=== PATIENT | female | born 1955 | race Caucasian/White ===

== ENCOUNTER 2020-03-22 12:32 | Emergency (ER) | payer MEDICARE, MEDICAID, SELFPAY ==
[2020-03-22 12:57] VITALS: BP 111/44; PULSE 54; RESP 14; TEMP 36.4; O2SAT 99; BMI 51.0
--- NOTE | 2020-03-22 13:22 | ECG_ITS ---
Measurements Intervals [place] Rate: 51 P: 60 LA: 250 QRS: 30 QRSD: 98 T: 54 QT: 436 QTc: 402 SINUS BRADYCARDIA WITH FIRST DEGREE AV BLOCK MINIMAL ST DEPRESSION [0.025+ mV ST DEPRESSION] Compared to ECG 07/18/2016 12:22:19 ST (T wave) deviation now present Sinus rhythm no longer present Myocardial infarct finding no longer present Electronically Signed On 03-22-2020 20:56:15 CDT by Nataly Marina M.D. [id number]
--- NOTE | 2020-03-22 13:22 | XR_ITS ---
WS: [id number] Portable AP upright chest, 03/22/2020 Clinical Data: chest pain Comparison: PA and lateral chest, 06/07/2018. Findings: No nodules, masses or effusions are seen. The heart is enlarged. The pulmonary vascularity is not increased. No pneumonia or pneumothorax is seen. The aortic arch shows calcification. XR/XR chest 1V portable [id number] Impression: Atherosclerosis.
[2020-03-22 15:01] LABS: Basophils % 0.4 %; Eosinophils # 0.2 10^3/uL (0.0-0.8); Eosinophils % 3.1 %; Hematocrit 43.1 % (37.0-47.0); Hemoglobin 13.9 g/dL (11.5-15.3); Lymphocytes # 1.5 10^3/uL (0.8-4.8); Lymphocytes % 22.8 %; Mean Corpuscular HGB Conc 32.3 g/dL (30.0-36.0); Mean Corpuscular Volume 92.9 fL (81-99); Mean Platelet Volume 11.3 fL (7.4-10.4); Monocytes # 0.7 10^3/uL (0.2-0.9); Monocytes % 10.3 %; Neutrophils # 4.2 10^3/uL (1.8-7.7); Neutrophils % 63.1 %; Nucleated Red Blood Cells % 0 %; Platelet Count 220 10^3/cmm (130-400); Red Blood Count 4.64 10^6/uL (4.1-5.3); White Blood Count 6.7 10^3/uL (4.0-10.0)
[2020-03-22 15:15] LABS: Alanine Aminotransferase 8 U/L (0-33); Albumin Level 4.3 g/dL (3.5-5.2); Alkaline Phosphatase 113 IU/L (35-105); Anion Gap 21.1 (5-19); Aspartate Amino Transferase 16 U/L (0-32); Blood Urea Nitrogen 58 mg/dL (8-23); Carbon Dioxide 24 mmol/L (22-29); Chloride 94 mmol/L (98-107); Globulin 3.8 g/dL (1.3-4.6); Glomerular Filtration Rate 28.2 mL/min (90-130); Glucose 93 mg/dL (65-115); Osmolality Calculated 276 mOsm/kg (285-295); Potassium 5.1 mmol/L (3.5-5.1); Sodium 134 mmol/L (136-145); Total Bilirubin 0.7 mg/dL (0.15-1.2); Total Protein 8.1 g/dL (6.6-8.7)
[2020-03-22 15:17] LABS: Troponin(5th) Baseline 12 ng/L (0-10)
[2020-03-22 17:00] VITALS: BP 135/50; PULSE 58; RESP 24; O2SAT 96
[2020-03-22 17:50] VITALS: BP 141/50; PULSE 60; RESP 22; O2SAT 98
[2020-03-22 18:04] LABS: NT Pro B Type Natriuretic Pept 178 pg/mL (0-125)
--- NOTE | 2020-03-22 18:39 | ED_ITS ---
HPI - General Adult General: Chief complaint: General Medical Stated complaint: low hr Time Seen by Provider: 03/22/20 15:45 Source: patient Mode of arrival: ambulatory Limitations: no limitations History of Present Illness: HPI narrative: The patient presents from her primary care provider's office with concerns of bradycardia. While in her doctor's office they noticed her heart rate was low and so was sent here to be seen. She has complained of mild shortness of breath with dyspnea on exertion as well as generalized weakness. She has a history of congestive heart failure. No fever, no cough, no sick contacts. MD complaint: Low HR Associated symptoms: Reports malaise; Deny dyspnea, headache(s), nausea, rash, palpitations or vomiting Review of Systems General: Reports: 10 or more systems reviewed and unremarkable except in HPI and below Const: Reports: malaise; Denies: fever(s), chills or body aches Eyes: Denies: change in vision or blurry vision ENMT: Denies: throat pain, enlarged tonsils, odynophagia, hoarseness, mouth pain or swelling of lips/tongue Card: Denies: palpitations, irregular heart rhythm, edema or swelling of feet/ankles Resp: Denies: dyspnea, productive cough or non-productive cough GI: Denies: abdominal pain, nausea or vomiting : Denies: flank pain, difficulty voiding, dysuria, urinary frequency, urinary urgency or urinary hesitancy Musc: Denies: neck pain, back pain or extremity swelling Skin/Breast: Denies: rash, pruritus or erythema Neuro: Denies: headache(s), numbness in extremities or weakness in extremities Endo: Denies: polyuria, polydipsia or tired all the time PFSH ED PFSH: Social History Smoking and tobacco status: never smoked Physical Exam Const: COMMON NORMALS: no acute distress, average body habitus, patient oriented x3, no limitations, healthy appearing, alert and well nourished HENMT: COMMON NORMALS: normocephalic, atraumatic and moist oral mucous membranes HEAD & SCALP: normocephalic and atraumatic Eye: COMMON NORMALS: Equal, round and reactive pupils present, EOMs intact bilaterally, conjunctivae normal and no scleral icterus CONJUNCTIVA: Yes con junctivae normal PUPIL: Yes Equal, round and reactive pupils present Neck/C-Spine: COMMON NORMALS: full ROM, supple, no meningeal signs, no JVD and No carotid bruits Chest: COMMONS NORMALS: normal inspection of the chest and normal palpation of entire chest wall Resp: COMMON NORMALS: normal respiratory effort, No retractions, No use of accessory muscles, clear to auscultation bilaterally and percussion normal AUSCULTATION: clear to auscultation bilaterally PERCUSSION: percussion normal Cardio: COMMON NORMALS: no JVD, regular rhythm, S1 normal heart sound present, S2 normal heart sound present, No gallops present (Cardio), No clicks present (Cardio), No murmurs present (Cardio), No rub (Cardio) and Peripheral pulses 2+ throughout RATE: bradycardic RHYTHM: regular rhythm HEART SOUNDS: S1 n ormal heart sound present and S2 normal heart sound present PERIPHERAL PULSES: Peripheral pulses 2+ throughout GI: COMMON NORMALS: Normal to inspection, nondistended, normoactive bowel sounds present, Soft to palpation, non-tender, No hepatosplenomegaly present, no masses and no bruits PALPATION: Yes Soft to palpation and Yes No hepatosplenomegaly present : COMMON NORMALS: Yes no CVA tenderness BLADDER/KIDNEY EXAM: Yes no CVA tenderness Back/Pelvis: COMMON NORMALS: no CVA tenderness Extremity: COMMON NORMALS: normal to inspection, full ROM, capillary refill normal, no calf tenderness and no pedal edema Neuro: COMMON NORMALS: patient oriented x3 SENSORIUM/ORIENTATION: Yes alert MENINGEAL SIGNS: Yes no meningeal signs Skin: COMMON NORMALS: no rashes or lesions noted, no wounds, turgor normal, no jaundice, no petechiae and no mottling GENERAL SKIN EXAM: no rashes or lesions noted and turgor normal Course Reevaluation(s): Reevaluation #1: Discussed her lab and imaging findings with her. Labs unremarkable. Troponins not significantly elevated and she has a flat 2-hour delta. The patient takes metoprolol 25 mg twice daily and I advised that she cut the dose in half and observe for change. She will check her blood pressure and pulse every morning to see if it is going too low or too high. She will follow-up with her primary care provider. She voiced understanding and is in agreement with the plan. Time: 18:39 Vital Signs: Vital signs: Vital Signs Temperature 97.6 F 03/22/20 12:57 Pulse Rate 66 03/22/20 18:50 Respiratory Rate 20 H 03/22/20 18:50 Blood Pressure 135/60 03/22/20 18:50 Pulse Oximetry 93 03/22/20 18:50 MDM - General Adult MDM Narrative: Medical decision making narrative: 64-year-old female patient who was sent to the emergency department by her primary care provider with concerns of bradycardia. Evaluation in the ED was unremarkable for acute illness. She is on metoprolol 25 mg twice daily and she is advised to cut the dose to 12.5 mg twice daily and monitor her heart rate daily. She is to follow-up with her primary care provider and to return for any concerns. Medical Records: Attestation: I reviewed the patient's medical records. Lab Data: Attestation: I reviewed the patient's lab results. Labs: Lab Results 03/22/20 03/22/20 03/22/20 Range/Units 14:53 14:53 14:53 WBC 6.7 (4.0-10.0) 10^3/ uL RBC 4.64 (4.1-5.3) 10^6/u L Hgb 13.9 (11.5-15.3) g/dL Hct 43.1 (37.0-47.0) % MCV 92.9 (81-99) fL MCH 30.0 (28.0-34.0) pg MCHC 32.3 (30.0-36.0) g/dL RDW 12.0 L (12.1-15.1) % Plt Count 220 (130-400) 10^3/c mm MPV 11.3 H (7.4-10.4) fL Neut % (Auto) 63.1 % Lymph % (Auto) 22.8 % [place] % (Auto) 10.3 % Eos % (Auto) 3.1 % Baso % (Auto) 0.4 % Neut # (Auto) 4.2 (1.8-7.7) 10^3/u L Lymph # (Auto) 1.5 (0.8-4.8) 10^3/u L [place] # (Auto) 0.7 (0.2-0.9) 10^3/u L Eos # (Auto) 0.2 (0.0-0.8) 10^3/u L Baso # (Auto) 0.0 (0.0-0.1) 10^3/u L Nucleated RBC % (a uto) 0 % Nucleated RBCs # 0.0 /100WBC Sodium 134 L (136-145) mmol/L Potassium 5.1 (3.5-5.1) mmol/L Chloride 94 L (98-107) mmol/L Carbon Dioxide 24 (22-29) mmol/L Anion Gap 21.1 H (5-19) BUN 58 H (8-23) mg/dL Creatinine 1.8 H (0.5-0.9) mg/dL GFR Calculation 28.2 L (90-130) mL/min Glucose 93 (65-115) mg/dL Calculated Osmolal ity 276 L (285-295) mOsm/k g Calcium 10.0 (8.5-10.5) mg/dL Total Bilirubin 0.7 (0.15-1.2) mg/dL AST 16 (0-32) U/L ALT 8 (0-33) U/L Alkaline Phosphata se 113 H (35-105) IU/L Troponin T Baselin e 12 H (0-10) ng/L Troponin T 120 Min makah (0-10) ng/L Delta Troponin T (0-10) ABS# NT-Pro-B Natriuret Pep (0-125) pg/mL Total Protein 8.1 (6.6-8.7) g/dL Albumin 4.3 (3.5-5.2) g/dL Globulin 3.8 (1.3-4.6) g/dL 03/22/20 03/22/20 Range/Units 17:08 17:08 WBC (4.0-10.0) 10^3/ uL RBC (4.1-5.3) 10^6/u L Hgb (11.5-15.3) g/dL Hct (37.0-47.0) % MCV (81-99) fL MCH (28.0-34.0) pg MCHC (30.0-36.0) g/dL RDW (12.1-15.1) % Plt Count (130-400) 10^3/c mm MPV (7.4-10.4) fL Neut % (Auto) % Lymph % (Auto) % [place] % (Auto) % Eos % (Auto) % Baso % (Auto) % Neut # (Auto) (1.8-7.7) 10^3/u L Lymph # (Auto) (0.8-4.8) 10^3/u L [place] # (Auto) (0.2-0.9) 10^3/u L Eos # (Auto) (0.0-0.8) 10^3/u L Baso # (Auto) (0.0-0.1) 10^3/u L Nucleated RBC % (a uto) % Nucleated RBCs # /100WBC Sodium (136-145) mmol/L Potassium (3.5-5.1) mmol/L Chloride (98-107) mmol/L Carbon Dioxide (22-29) mmol/L Anion Gap (5-19) BUN (8-23) mg/dL Creatinine (0.5-0.9) mg/dL GFR Calculation (90-130) mL/min Glucose (65-115) mg/dL Calculated Osmolal ity (285-295) mOsm/k g Calcium (8.5-10.5) mg/dL Total Bilirubin (0.15-1.2) mg/dL AST (0-32) U/L ALT (0-33) U/L Alkaline Phosphata se (35-105) IU/L Troponin T Baselin e (0-10) ng/L Troponin T 120 Min makah 11.40 H (0-10) ng/L Delta Troponin T -0.60 L (0-10) ABS# NT-Pro-B Natriuret Pep 178 H (0-125) pg/mL Total Protein (6.6-8.7) g/dL Albumin (3.5-5.2) g/dL Globulin (1.3-4.6) g/dL Imaging Data^: CXR: Radiologist's impression: [address] [address] XRay Report Signed Patient: Shelby Thompson #: [id number] : 5Acct#:[id number] Age/Sex: 64 / FADM Date: 03/22/20 Loc: ERRoom/Bed: Attending Dr: Ordering Provider/Ordering MD: Henrietta Oropeza Date of Service: 03/22/20 Procedure(s): XR chest 1V portable [id number] Accession Number(s): [id number] Report Number: [id number] WS: [id number] Portable AP upright chest, 03/22/2020 Clinical Data: chest pain Comparison: PA and lateral chest, 06/07/2018. Findings: No nodules, masses or effusions are seen. The heart is enlarged. The pulmonary vascularity is not increased. No pneumonia or pneumothorax is seen. The aortic arch shows calcification. XR/XR chest 1V portable [id number] Impression: Atherosclerosis. Dictated By:Sarah Biswas MD Signed By:Sarah Biswasigned Date/Time:03/22/20 1340 DD/ 1339 EKG Data^: EKG 1: Attestation: I personally reviewed and interpreted this EKG as follows: EKG interpretation date: 03/22/20 EKG interpretation time: 16:13 Prior EKG tracings: not available for review Interpretation: Sinus bradycardia with first-degree heart block. Heart rate 53 beats per minutes. No ST changes. Computer generated interpretation: Chest X-Ray 03/22/20 13:22 Impression: Atherosclerosis. Discharge Plan Discharge Patient Disposition: Home, Self-Care Clinical Impression: Drug-induced bradycardia Condition: Stable Prescriptions: Continued furosemide 40 mg tablet See Rx Instructions .ROUTE .COMPLEX RF: 0 potassium chloride 10 mEq capsule, extended release 10 meq PO BID RF: 0 sertraline 100 mg tablet 50 mg PO DAILY RF: 0 Vitamin B-12 1,000 mcg Tablet See Rx Instructions .ROUTE .COMPLEX RF: 0 amlodipine 5 mg tablet 7.5 mg PO QPM RF: 0 Aspir-81 81 mg Tablet,Delayed Release (Dr/Ec) 81 mg PO DAILY RF: 0 spironolactone 25 mg tablet See Rx Instructions .ROUTE .COMPLEX RF: 0 levothyroxine 50 mcg tablet 50 mcg PO DAILY RF: 0 hydroxychloroquine 200 mg tablet 200 mg PO BID RF: 0 ProAir HFA 90 mcg/actuation HFA aerosol inhaler 2 puff INHALATION Q4H PRN (Reason: Shortness Of Breath) RF: 0 losartan 100 mg tablet 100 mg PO DAILY RF: 0 Flonase Allergy Relief 50 mcg/actuation [place],Suspension 2 spray INTRANASAL BID PRN (Reason: unknown) RF: 0 Symbicort 160-4.5 mcg/actuation HFA aerosol inhaler 2 puff INHALATION BID RF: 0 Changed metoprolol tartrate 25 mg tablet 12.5 mg PO BID Qty: 0 RF: 0 Discharge Orders: Discharge Order (Routine); Ordered 03/22/20 Ordered By: Abhi Hairston Referrals: Salas Echevarria MD [Primary Care Provider] - 1-3 days Patient Instructions: Bradycardia (ED) Activity Restrictions/Additional Instructions: Return for any new or worsening symptoms. Check your blood pressure and heart rate every day to make sure your blood pressure does not go below 90 and your heart rate does not go below 50. If any of these happens contact your healthcare provider or return to the emergency department for evaluation. 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
[2020-03-22 18:50] VITALS: BP 135/60; PULSE 66; RESP 20; O2SAT 93
--- NOTE | 2020-03-22 19:22 | ECG_ITS ---
Measurements Intervals [place] Rate: 53 P: 137 SC: 237 QRS: 4 QRSD: 101 T: 119 QT: 454 QTc: 427 ECTOPIC ATRIAL BRADYCARDIA WITH FIRST DEGREE AV BLOCK LOW QRS VOLTAGE [QRS DEFLECTION < 0.5/1.0 mV IN LIMB/CHEST LEADS] SEPTAL MYOCARDIAL INFARCTION , OF INDETERMINATE AGE [40+ ms Q WAVE IN V1/V2] Compared to ECG 07/18/2016 12:22:19 Bradycardia, nonsinus now present Low QRS voltage now present Sinus rhythm no longer present Myocardial infarct finding still present Electronically Signed On 03-22-2020 21:01:34 CDT by Nataly Marina M.D. [id number]
== END 2020-03-22 19:00 | disposition home or self-care (01) ==
PROVIDERS: Physician Assistant; Emergency Provider Family Medicine; PCP Internal Medicine
DX: R00.1 Bradycardia, unspecified (principal); Z79.82 Long term (current) use of aspirin; I70.0 Atherosclerosis of aorta
CPT/HCPCS: 12345; 71045; 80053; 83880; 84484; 85025; 93005; 99282; 99283

== ENCOUNTER 2021-04-28 12:11 | Inpatient (IN) | payer MEDICARE, MEDICAID, SELFPAY ==
[2021-04-28] VITALS (8 sets, daily range): BP systolic 110–135; BP diastolic 48–72; PULSE 72–84; RESP 15–27; TEMP 36.9; O2SAT 84–93; BMI 48.7
--- NOTE | 2021-04-28 14:10 | XRR_ITS ---
PROCEDURE INFORMATION: Exam: XR Chest Exam date and time: 04/28/2021 2:10 PM Age: 65 years old Clinical indication: Dyspnea TECHNIQUE: Imaging protocol: XR of the chest. Views: 1 view. COMPARISON: CR XR chest 1V portable [id number] 03/22/2020 1:42 PM FINDINGS: Lungs: Patchy airspace disease bilaterally. Diffuse interstitial thickening. Pleural spaces: Unremarkable. No pleural effusion. No pneumothorax. Heart/Mediastinum: Mild cardiac enlargement. Vasculature: Scattered atherosclerosis. Bones/joints: Unremarkable. XR/XR chest 1V portable [id number] IMPRESSION: Diffuse interstitial and alveolar opacities. The diagnostic considerations would include both atypical pneumonia or pulmonary edema with cardiac decompensation.
--- NOTE | 2021-04-28 14:13 | ECG_ITS ---
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 Measurements Intervals [place] Rate: 71 P: 22 WV: 192 QRS: 20 QRSD: 93 T: 42 QT: 412 QTc: 448 Interpretive Statements SINUS RHYTHM LOW QRS VOLTAGE IN PRECORDIAL LEADS [QRS DEFLECTION < 1.0 mV IN CHEST LEADS] POSSIBLE ANTERIOR MYOCARDIAL INFARCTION [30 ms Q WAVE IN V3/V4, OR R < 0.2 mV IN V4], PROBABLY OLD Compared to ECG 03/22/2020 16:13:08 Bradycardia, nonsinus no longer present First degree AV block no longer present Myocardial infarct finding still present Electronically Signed On 04-28-2021 20:16:47 CDT by Nataly Marina M.D. [id number]
[2021-04-28 15:13] LABS: ABG PCO2 39.2 mmHg (35-45); Arterial Blood Gas Hematocrit 46.7 % (37-47); Base Excess ABG -0.7 mmol/L (-2.0-2.0); Blood Gas Allen Test Pos; Blood Gas Operator Identificat glc; Blood Gas Sample Site Radial, right; Blood Gas Sample Type Arterial; Carboxyhemoglobin 0.8 %THgb (0.4-20.1); Methemoglobin 0.9 % (0.4-1.5); Oxygen Device NC; PO2 ABG 64.9 mmHg (80.0-100.0); Total Hemoglobin 15.2 g/dL (12-16)
--- NOTE | 2021-04-28 16:13 | ECG_ITS ---
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 Measurements Intervals [place] Rate: 73 P: 34 IA: 189 QRS: 17 QRSD: 98 T: 41 QT: 422 QTc: 466 Interpretive Statements SINUS RHYTHM LOW QRS VOLTAGE IN PRECORDIAL LEADS [QRS DEFLECTION < 1.0 mV IN CHEST LEADS] POSSIBLE ANTERIOR MYOCARDIAL INFARCTION [30 ms Q WAVE IN V3/V4, OR R < 0.2 mV IN V4], PROBABLY OLD Compared to ECG 04/28/2021 15:21:12 No significant changes Electronically Signed On 04-28-2021 20:22:44 CDT by Nataly Marina M.D. [id number]
[2021-04-28 16:48] LABS: Basophils % 0.2 %; Hematocrit 43.7 % (37.0-47.0); Lymphocytes # 0.6 10^3/uL (0.8-4.8); Lymphocytes % 9.2 %; Mean Corpuscular Volume 90.5 fL (81-99); Monocytes # 0.6 10^3/uL (0.2-0.9); Monocytes % 9.9 %; Neutrophils # 4.81 10^3/uL (1.8-7.7); Neutrophils % 80.4 %; Nucleated Red Blood Cells % 0 %; Platelet Count 169 10^3/cmm (130-400); Red Blood Count 4.83 10^6/uL (4.1-5.3); Red Cell Distribution Width 13.2 % (12.1-15.1)
[2021-04-28 17:22] LABS: Lactate (Lactic Acid level) 1.1 mmol/L (0.5-2.2)
[2021-04-28 17:23] LABS: Troponin(5th) Baseline 21 ng/L (0-10)
[2021-04-28 17:26] LABS: Alanine Aminotransferase 14 U/L (0-33); Albumin Level 3.5 g/dL (3.5-5.2); Alkaline Phosphatase 114 IU/L (35-105); Aspartate Amino Transferase 35 U/L (0-32); Blood Urea Nitrogen 52 mg/dL (8-23); Calcium 8.3 mg/dL (8.5-10.5); Carbon Dioxide 25 mmol/L (22-29); Chloride 95 mmol/L (98-107); Globulin 2.8 g/dL (1.3-4.6); Glomerular Filtration Rate 32.2 mL/min (90-130); Glucose 112 mg/dL (65-115); NT Pro B Type Natriuretic Pept 577 pg/mL (0-125); Osmolality Calculated 287 mOsm/kg (285-295); Sodium 131 mmol/L (136-145); Total Bilirubin 0.5 mg/dL (0.15-1.2); Total Protein 6.3 g/dL (6.6-8.7)
[2021-04-28 17:49] LABS: SARS Covid-2 Antigen Positive (Negative)
[2021-04-28] MEDS: albuterol 8 gm MDI 2 PUFF INHALATION (18:47)
--- NOTE | 2021-04-28 19:17 | W.ED.SOB ---
HPI - SOB/Dyspnea General: Chief Complaint: Shortness of Breath/Dyspnea Stated Complaint: COUGH; HEADACHE; EXPOSED TO COVID Time Seen by Provider: 04/28/21 13:54 History of Present Illness: HPI Narrative: The patient is a 65-year-old female with past medical history chronic kidney disease who comes to the ER complaining of shortness of breath, cough, headache for the past week. She says her daughter was tested positive for Covid a week before that. She was satting in the low 80s on room air and placed on 3 L. She complains of Covid-like symptoms. MD elicited complaint: shortness of breath and cough Context: recent illness Timing: constant Severity: moderate Exacerbating factors: exertion Relieving factors: oxygen and rest Associated symptoms: Reports cough and fever(s); Deny abdominal pain, chest pain, dizziness, extremity pain, orthopnea, palpitations or polyuria Review of Systems General: Reports: 10 or more systems reviewed and unremarkable except in HPI and below Const: Reports: fever(s) Eyes: Denies: change in vision, blurry vision or eye redness ENMT: Denies: throat pain, swelling of lips/tongue, ear or mastoid pain or nasal congestion Card: Denies: chest pain, palpitations, irregular heart rhythm, edema, dyspnea on exertion or orthopnea Resp: Reports: dyspnea and non-productive cough; Denies: productive cough GI: Denies: abdominal pain, diarrhea or GI cramping : Denies: flank pain, difficulty voiding, urinary frequency or urinary urgency Musc: Denies: neck pain, back pain, extremity pain, joint pain, joint redness, limited range of motion or muscle weakness Skin/Breast: Denies: rash, pruritus, erythema, skin pain or skin tenderness Neuro: Reports: headache(s); Denies: numbness in extremities, weakness in extremities, sensory changes, difficulty walking, dizziness, confusion or Slurred speech present Psych: Denies: anxiety or depression Endo: Denies: polyuria All/Imm: Denies: urticaria, throat swelling or tongue swelling PFSH ED PFSH: Social History Smoking and tobacco status: never smoked Physical Exam Narrative: EXAM NARRATIVE: ExertionSatting in low 80s on room air requiring 3 L to saturate in low 90s. With any exertion she desats to the mid 80s on 3 L oxygen. Const: COMMON NORMALS: no acute distress, average body habitus, patient oriented x3, no limitations, healthy appearing, alert and well nourished GENERAL APPEARANCE: cooperative, comfortable, well kempt and well developed ORIENTATION/CONSCIOUSNESS: Yes awake, Yes oriented to person, Yes oriented to place and Yes oriented to time HENMT: COMMON NORMALS: normocephalic, external ears normal and Normal external nose present HEAD & SCALP: normal to inspection and normocephalic NOSE: Normal external nose present EXTERNAL EAR: Yes external ears normal MOUTH: Normal oral and palatal mucosa present THROAT: posterior oropharynx normal Eye: COMMON NORMALS: Equal, round and reactive pupils present and EOMs intact bilaterally GENERAL EYE: appearance normal, both eyes and all related structures PUPIL: Yes Equal, round and reactive pupils present Neck/C-Spine: COMMON NORMALS: full ROM, no lymphadenopathy, no meningeal signs and no JVD GENERAL: Yes normal visual inspection Lymph: LYMPHATIC: no lymphadenopathy noted Chest: COMMONS NORMALS: normal inspection of the chest and normal palpation of entire chest wall Resp: COMMON NORMALS: normal respiratory effort, No retractions, No use of accessory muscles, clear to auscultation bilaterally and percussion normal EFFORT & INSPECTION: Yes able to speak in complete sentences AUSCULTATION: clear to auscultation bilaterally PERCUSSION: percussion normal Cardio: COMMON NORMALS: no JVD, regular rate, regular rhythm, S1 normal heart sound present, S2 normal heart sound present and Peripheral pulses 2+ throughout RATE: regular rate RHYTHM: regular rhythm HEART SOUNDS: S1 normal heart sound present and S2 normal heart sound present PERIPHERAL PULSES: Peripheral pulses 2+ throughout GI: COMMON NORMALS: Normal to inspection, nondistended, normoactive bowel sounds present, Soft to palpation, non-tender and no masses INSPECTION: Yes normal to inspection PALPATION: Yes Soft to palpation : COMMON NORMALS: Yes no CVA tenderness BLADDER/KIDNEY EXAM: Yes no CVA tenderness Back/Pelvis: COMMON NORMALS: no CVA tenderness, thoracic and lumbar spine normal to inspection, no thoracic nor lumbar tenderness and thoraco-lumbar ROM normal Extremity: COMMON NORMALS: normal to inspection, full ROM, capillary refill normal, no joint enlargement and no pedal edema GENERAL: Yes normal exam except as noted Neuro: COMMON NORMALS: patient oriented x3, CN's II-XII intact bilaterally, moves all extremities, no focal motor deficits, no sensory deficits noted and gait normal SENSORIUM/ORIENTATION: Yes alert, Yes oriented to person, Yes oriented to place and Yes oriented to time MENINGEAL SIGNS: Yes no meningeal signs Psych: COMMON NORMALS: mental status grossly normal, Normal thought process present, cooperative, normal affect and speech normal APPEARANCE: Yes well kempt ATTITUDE: Yes calm SPEECH: Yes normal speech THOUGHT PROCESS: Normal thought process present Skin: COMMON NORMALS: no rashes or lesions noted GENERAL SKIN EXAM: no rashes or lesions noted Course Vital Signs: Vital signs: Vital Signs Temperature 98.4 F 04/28/21 12:13 Pulse Rate 80 04/28/21 18:52 Respiratory Rate 15 04/28/21 18:50 Blood Pressure 114/70 04/28/21 12:21 Pulse Oximetry 84 L 04/28/21 18:54 MDM - SOB/Dyspnea MDM Narrative: Medical decision making narrative: The patient came to the ER complaining of Covid-like symptoms after being exposed and she has been sick for about a week. She tested positive today for Covid here in the ER. She is requiring 3 L to sat in the low 90s of oxygen. Any exertion she dips down to the mid 80s. Creatinine 1.6 with BUN 52. She knows she has a history of chronic kidney disease and CHF. Discussed with Dr. Partida who accepts for admission. Lab Data: Labs: Lab Results 04/28/21 04/28/21 04/28/21 Range/Units 15:02 16:32 16:32 WBC 6.0 (4.0-10.0) 10^3/ uL RBC 4.83 (4.1-5.3) 10^6/u L Hgb 14.0 (11.5-15.3) g/dL Hct 43.7 (37.0-47.0) % MCV 90.5 (81-99) fL MCH 29.0 (28.0-34.0) pg MCHC 32.0 (30.0-36.0) g/dL RDW 13.2 (12.1-15.1) % Plt Count 169 (130-400) 10^3/c mm MPV 12.0 H (7.4-10.4) fL Neut % (Auto) 80.4 % Lymph % (Auto) 9.2 % [place] % (Auto) 9.9 % Eos % (Auto) 0.0 % Baso % (Auto) 0.2 % Neut # (Auto) 4.81 (1.8-7.7) 10^3/u L Lymph # (Auto) 0.6 L (0.8-4.8) 10^3/u L [place] # (Auto) 0.6 (0.2-0.9) 10^3/u L Eos # (Auto) 0.0 (0.0-0.8) 10^3/u L Baso # (Auto) 0.0 (0.0-0.1) 10^3/u L Nucleated RBC % (a uto) 0 % Nucleated RBCs # 0.0 /100WBC Specimen Type Arterial Sample Site Radial, right ABG pH 7.40 (7.35-7.45) ABG pCO2 39.2 (35-45) mmHg ABG pO2 64.9 L (80.0-100.0) mmH g ABG HCO3 24.0 (22-26) mmol/L ABG Base Excess -0.7 (-2.0-2.0) mmol/ L Bertrand Test Pos Hematocrit 46.7 (37-47) % Hgb O2 Saturation 92.0 L (95-100) % Carboxyhemoglobin 0.8 (0.4-20.1) %THgb Methemoglobin 0.9 (0.4-1.5) % Total Hemoglobin 15.2 (12-16) g/dL O2 Delivery Device Nc O2 Liters/Min 3.0 % FiO2 32.0 % Direct Casting Operator ID glc Sodium 131 L (136-145) mmol/L Potassium 5.0 (3.5-5.1) mmol/L Chloride 95 L (98-107) mmol/L Carbon Dioxide 25 (22-29) mmol/L Anion Gap 16.0 (5-19) BUN 52 H (8-23) mg/dL Creatinine 1.6 H (0.5-0.9) mg/dL GFR Calculation 32.2 L (90-130) mL/min Glucose 112 (65-115) mg/dL Calculated Osmolal ity 287 (285-295) mOsm/k g Lactate (0.5-2.2) mmol/L Calcium 8.3 L (8.5-10.5) mg/dL Total Bilirubin 0.5 (0.15-1.2) mg/dL AST 35 H (0-32) U/L ALT 14 (0-33) U/L Alkaline Phosphata se 114 H (35-105) IU/L Troponin T Baselin e (0-10) ng/L NT-Pro-B Natriuret Pep 577 H (0-125) pg/mL Total Protein 6.3 L (6.6-8.7) g/dL Albumin 3.5 (3.5-5.2) g/dL Globulin 2.8 (1.3-4.6) g/dL SARS-CoV-2 Ag (Rap id) (Negative) 04/28/21 04/28/21 04/28/21 Range/Units 16:32 16:32 16:32 WBC (4.0-10.0) 10^3/ uL RBC (4.1-5.3) 10^6/u L Hgb (11.5-15.3) g/dL Hct (37.0-47.0) % MCV (81-99) fL MCH (28.0-34.0) pg MCHC (30.0-36.0) g/dL RDW (12.1-15.1) % Plt Count (130-400) 10^3/c mm MPV (7.4-10.4) fL Neut % (Auto) % Lymph % (Auto) % [place] % (Auto) % Eos % (Auto) % Baso % (Auto) % Neut # (Auto) (1.8-7.7) 10^3/u L Lymph # (Auto) (0.8-4.8) 10^3/u L [place] # (Auto) (0.2-0.9) 10^3/u L Eos # (Auto) (0.0-0.8) 10^3/u L Baso # (Auto) (0.0-0.1) 10^3/u L Nucleated RBC % (a uto) % Nucleated RBCs # /100WBC Specimen Type Sample Site ABG pH (7.35-7.45) ABG pCO2 (35-45) mmHg ABG pO2 (80.0-100.0) mmH g ABG HCO3 (22-26) mmol/L ABG Base Excess (-2.0-2.0) mmol/ L Bertrand Test Hematocrit (37-47) % Hgb O2 Saturation (95-100) % Carboxyhemoglobin (0.4-20.1) %THgb Methemoglobin (0.4-1.5) % Total Hemoglobin (12-16) g/dL O2 Delivery Device O2 Liters/Min % FiO2 % Direct Casting Operator ID Sodium (136-145) mmol/L Potassium (3.5-5.1) mmol/L Chloride (98-107) mmol/L Carbon Dioxide (22-29) mmol/L Anion Gap (5-19) BUN (8-23) mg/dL Creatinine (0.5-0.9) mg/dL GFR Calculation (90-130) mL/min Glucose (65-115) mg/dL Calculated Osmolal ity (285-295) mOsm/k g Lactate 1.1 (0.5-2.2) mmol/L Calcium (8.5-10.5) mg/dL Total Bilirubin (0.15-1.2) mg/dL AST (0-32) U/L ALT (0-33) U/L Alkaline Phosphata se (35-105) IU/L Troponin T Baselin e 21 H (0-10) ng/L NT-Pro-B Natriuret Pep (0-125) pg/mL Total Protein (6.6-8.7) g/dL Albumin (3.5-5.2) g/dL Globulin (1.3-4.6) g/dL SARS-CoV-2 Ag (Rap id) Positive H (Negative) Discharge Plan Discharge Patient Disposition: Admitted As Inpatient Clinical Impression: COVID-19, Creatinine elevation Condition: Stable Coding Level of Care Code ED City Supervisor for Wilfred Mcconnell
[2021-04-28 19:37] LABS: Troponin 5 2HR 22.99 ng/L (0-10); Troponin 5 2HR Delta 1.99 ABS# (0-10)
--- NOTE | 2021-04-28 20:13 | ECG_ITS ---
[facility] Test Date: 2021-04-28 Pat Name: Shelby Thompson Department: Room: Gender: Female Mail Room: : 1955 Requested By: Kai Thomas Order Number: [id number] Joe MD: Nataly Marina M.D. Measurements Intervals [place] Rate: 74 P: 22 IA: 183 QRS: 10 QRSD: 97 T: 48 QT: 403 QTc: 448 Interpretive Statements SINUS RHYTHM LOW QRS VOLTAGE IN PRECORDIAL LEADS [QRS DEFLECTION < 1.0 mV IN CHEST LEADS] POSSIBLE ANTERIOR MYOCARDIAL INFARCTION [30 ms Q WAVE IN V3/V4, OR R < 0.2 mV IN V4], OF INDETERMINATE AGE Compared to ECG 04/28/2021 17:23:36 No significant changes Electronically Signed On 04-28-2021 20:23:07 CDT by Nataly Marina M.D. [id number]
--- NOTE | 2021-04-28 21:51 | PM.HP ---
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 She presents to the emergency room today which chief complaint of fever, chills, weakness, nausea, myalgias, cough with expectoration and progressively worsening dyspnea over the past week. Upon presentation to the emergency room she was saturating 84% on room air, tachypneic upon admission and then tested positive for COVID-19. She is unvaccinated. Review of Systems General: Reports: 10 or more systems reviewed and unremarkable except in HPI and below Const: Reports: fever(s), chills and body aches Eyes: Denies: change in vision, blurry vision or photophobia ENMT: Denies: throat pain, enlarged tonsils, odynophagia or nasal congestion Card: Reports: edema, swelling of feet/ankles, dyspnea on exertion and orthopnea; Denies: chest pain, palpitations, irregular heart rhythm, lightheadedness or pre-syncope Resp: Reports: dyspnea, productive cough and non-productive cough; Denies: wheezing, stridor, pain on inspiration, change in phlegm color, hemoptysis or chest congestion GI: Denies: abdominal pain, nausea, vomiting, hematemesis, coffee ground emesis, dysphagia, heartburn, diarrhea, constipation, GI cramping, change in stool character, hematochezia or melena : Denies: flank pain, difficulty voiding, dysuria, urinary frequency, urinary urgency, urinary hesitancy or hematuria Musc: Denies: neck pain, back pain, extremity pain, joint swelling, joint warmth or deformity Neuro: Denies: headache(s), numbness in extremities, weakness in extremities, sensory changes, difficulty walking, frequent falls, dizziness, vertigo, behavioral changes, Slurred speech present or seizure-like activity Psych: Denies: anxiety, depression, suicidal ideation or homicidal ideation Endo: Denies: polyuria, polydipsia, tired all the time, cold intolerance or hot flashes [place]/Lymph: Denies: easy bruising or easy bleeding Medications/Allergies Home Medications Medication Instructions Recorded Confirmed Last Taken Type albuterol sulfate [ProAir HFA] 2 puff INHALATION Q4H PRN 03/22/20 04/28/21 Unknown History amlodipine 7.5 mg PO QPM 03/22/20 04/28/21 04/27/21 History aspirin [Aspir-81] 81 mg PO DAILY 03/22/20 04/28/21 04/28/21 History cyanocobalamin (vitamin B-12) See Rx Instructions .ROUTE .COMPLEX 03/22/20 04/28/21 04/28/21 History [Vitamin B-12] fluticasone propionate [Flonase 2 spray INTRANASAL BID PRN 03/22/20 04/28/21 Unknown History Allergy Relief] furosemide See Rx Instructions .ROUTE .COMPLEX 03/22/20 04/28/21 04/28/21 History hydroxychloroquine 200 mg PO BID 03/22/20 04/28/21 04/28/21 History levothyroxine 50 mcg PO DAILY 03/22/20 04/28/21 04/28/21 History losartan 100 mg PO DAILY 03/22/20 04/28/21 04/28/21 History metoprolol tartrate 12.5 mg PO BID #0 tab 03/22/20 04/28/21 04/28/21 Rx potassium chloride 10 meq PO BID 03/22/20 04/28/21 04/28/21 History spironolactone 50 mg PO DAILY 03/22/20 04/28/21 04/28/21 History citalopram 10 mg PO DAILY 04/28/21 04/28/21 04/28/21 History fluticasone furoate-vilanterol 1 ea INHALATION DAILY 04/28/21 04/28/21 04/28/21 History [Breo Ellipta] Allergies Allergy/AdvReac Type Severity Reaction Status Date / Time bacitracin Allergy ALGY-Rash Verified 03/22/20 12:55 [From Triple Antibiotic] levofloxacin [From Levaquin] Allergy Unknown Verified 03/22/20 16:25 lisinopril Allergy ALGY-Hives Verified 03/22/20 12:55 neomycin Allergy ALGY-Rash Verified 03/22/20 12:55 [From Triple Antibiotic] Penicillins Allergy ALGY-Difficulty Verified 03/22/20 12:55 Swallowing polymyxin B Allergy ALGY-Rash Verified 03/22/20 12:55 [From Triple Antibiotic] PFSH Acute PFSH: Medical History Chronic venous insufficiency Depression Diastolic heart failure Hypertension Interstitial lung disease Lymphedema Mixed connective tissue disease Oxygen dependent Recurrent cellulitis Restrictive lung disease Family History (Updated 04/28/21 @ 22:00 by Jewels Partida MD) Other CAD (coronary artery disease) Social History Smoking and tobacco status: never smoked Vitals/I&O/Wt Last Vital Signs Temp 98.4 F 04/28/21 12:13 Pulse 80 04/28/21 18:52 Resp 15 04/28/21 18:50 BP 114/70 04/28/21 12:21 Pulse Ox 84 L 04/28/21 18:54 Weight last 48 hrs Weight 128.82 kg Physical Exam Narrative: EXAM NARRATIVE: General: Mildly tachypneic on exam. Respiratory rate of 22. Saturating 94% at 4 L/min HEENT: PERRLA, pupils bilaterally equal and reactive, pallors not present Chest: Normal vesicular breath sounds, no added sounds, equal good air entry bilaterally CVS: S1-S2 regular, no murmurs, no tachycardia, no gallops, no rubs Abdomen: Soft, nontender, no organomegaly, bowel sounds present Neuro: No focal deficits, no facial deformity, AO x3, power 5/5 in all limbs Extremities: Bilateral lower extremity chronic appearing lymphedema Data : 04/28/21 16:32 04/29/21 05:05 A&P Assessment and plan (1) COVID-19: Admit to MedSurg. Start remdesivir dexamethasone DuoNeb and budesonide inhalation Chest x-ray with diffuse interstitial infiltrates bilaterally. Check inflammatory markers including CRP, D-dimer, LDH and ferritin Ceftriaxone and azithromycin empirically Supplemental O2 to keep saturation greater than 92% Status: Acute (2) Restrictive lung disease: Per prior notes reviewed dating back to 2011, patient is to follow-up with rheumatology and pulmonology. Last PFT dating 2017 with restrictive lung disease. Noted to have progressive disease even at the time. At a baseline patient is noted to be on 2.5 L/min, has not used her oxygen since her concentrator broke down in August. Status: Acute Additional A&P Information Hypertension: Continue home dose of metoprolol, losartan, Norvasc DVT prophylaxis Lovenox Full code Attestations Medical Necessity Statement*: Greater than 2 midnight admission anticipated for management of COVID-19 pneumonia with hypoxic respiratory failure Coding Level of Care Code Acute Criminal Intelligence Analyst for [facility] Diagnoses COVID-19 U07.1 Restrictive lung disease J98.4
[2021-04-28] MEDS: remdesivir 200 MG in sodium chloride 0.9% (100 ml) 100 ML 100 MG IV (23:05)
[2021-04-28] MEDS: dexamethasone 4 mg/mL INJ 6 MG IVP (23:48)
[2021-04-28] MEDS: enoxaparin 40 mg/0.4 mL Syringe SUBCUT (23:48)
[2021-04-28] MEDS: FUROsemide 10 mg/mL SDV 4mL 40 MG IVP (23:48)
[2021-04-29] VITALS (16 sets, daily range): BP systolic 102–152; BP diastolic 50–58; PULSE 62–83; RESP 16–26; TEMP 36.4–36.9; O2SAT 90–93
[2021-04-29] MEDS: azithromycin 500 MG in sodium chloride 0.9% 250 ML 250 MG IV (00:30)
--- NOTE | 2021-04-29 01:54 | PC.NURSE ---
Received patient from ED, report from Wilma MCCRARY. Patient is A & O, has no C/O of pain or needs at this time.
[2021-04-29] MEDS: ipratropium-albuterol 3 mL Neb INHALATION ×4 (04:02→21:36)
[2021-04-29 06:05] LABS: Alanine Aminotransferase 13 U/L (0-33); Albumin Level 2.9 g/dL (3.5-5.2); Alkaline Phosphatase 94 IU/L (35-105); Anion Gap 18.1 (5-19); Aspartate Amino Transferase 34 U/L (0-32); Blood Urea Nitrogen 56 mg/dL (8-23); C Reactive Protein 198.9 mg/L (0.0-4.9); Calcium 7.8 mg/dL (8.5-10.5); Carbon Dioxide 22 mmol/L (22-29); Chloride 99 mmol/L (98-107); Ferritin 760 ng/mL (15-150); Globulin 3.4 g/dL (1.3-4.6); Glomerular Filtration Rate 32.2 mL/min (90-130); Glucose 119 mg/dL (65-115); Lactate Dehydrogenase 379 U/L (135-214); Osmolality Calculated 295 mOsm/kg (285-295); Potassium 5.1 mmol/L (3.5-5.1); Sodium 134 mmol/L (136-145); Total Bilirubin 0.3 mg/dL (0.15-1.2); Total Protein 6.3 g/dL (6.6-8.7)
[2021-04-29] MEDS: aspirin 81 mg EC Tablet PO (08:25)
[2021-04-29] MEDS: levothyroxine 50 mcg Tablet PO (08:25)
[2021-04-29] MEDS: losartan 50 mg Tablet 100 MG PO (08:25)
[2021-04-29] MEDS: metoprolol tartrate 25 mg Tablet 12.5 MG PO ×2 (08:25→17:22)
[2021-04-29] MEDS: benzonatate 100 mg Capsule PO (08:25)
[2021-04-29] MEDS: citalopram 20 mg Tablet 10 MG PO (08:26)
[2021-04-29] MEDS: cefTRIAXone 1,000 MG in sodium chloride 0.9% (plus) 100 ML 200 MG IV (08:32)
[2021-04-29 09:38] LABS: Procalcitonin 0.21 ng/mL (0-0.5)
[2021-04-29 10:32] LABS: D Dimer 0.84 ug/mIFEU (0-0.59)
[2021-04-29] MEDS: budesonide 0.5 mg/2 mL Neb INHALATION (11:05)
[2021-04-29] MEDS: hydroxychloroquine 200 mg Tablet PO ×2 (11:34→17:22)
[2021-04-29] MEDS: FUROsemide 10 mg/mL SDV 4mL 40 MG IVP ×2 (12:48→22:01)
--- NOTE | 2021-04-29 17:01 | PM.PN ---
Subjective Subjective: Interval history: Patient was on 4L nasal cannula when I interviewed her, no active complaint of chest pain or shortness of breath Noticed left abdominal pannus skin rash with wound opening, hyperemia and cellulitis Vitals/I&O/Wt Last Vital Signs Temp 98 F 04/29/21 15:39 Pulse 66 04/29/21 16:34 Resp 22 H 04/29/21 16:20 BP 152/58 04/29/21 15:39 Pulse Ox 93 04/29/21 16:20 04/29/21 04/29/21 04/29/21 06:59 14:59 22:59 Intake Total 350 / 350 680 / 680 Output Total 200 / 200 Balance 150 / 150 680 / 680 Weight last 48 hrs Weight 128.82 kg Physical Exam Narrative: EXAM NARRATIVE: Morbidly obese female Saturating well on 4 L nasal cannula No active chest pain or shortness of breath S1, S2 no murmur appreciated Signs of active heart failure however volume status hard to assess Bilateral diminished breath sounds with rhonchi at the bases Hyperemia of left abdominal pannus salmon-colored with wound opening without any active drainage, pannus nonpurulent cellulitis Lower extremity lymphedema Bunion with hammertoes Pleasant and cooperative during my evaluation Data : 04/28/21 16:32 04/29/21 05:05 Micro: Microbiology 04/29/21 11:25 Blood Culture - Preliminary Blood SPECIMEN COLLECTED 04/29/21 11:21 Blood Culture - Preliminary Blood SPECIMEN COLLECTED A&P Assessment and plan (1) Acute respiratory failure with hypoxia: Status: Acute (2) Cellulitis: Status: Acute (3) Mixed connective tissue disease: Status: Acute (4) COVID-19: Status: Acute Additional A&P Information Acute hypoxic respiratory failure secondary to COVID-19 pneumonia Nonvaccinated Patient does not take anything else other than hydroxychloroquine, considering high CRP and hypoxia I would go ahead and start interleukin-6 inhibitor along with remdesivir and steroids Discontinue inhaled steroid Discontinue ceftriaxone and azithromycin, procalcitonin unremarkable Finished remdesivir regimen At home uses 2 to 3 L of oxygen usually which she has not been able to use for last few months At high risk for mortality and morbidity because of her Ms. connective tissue disorder morbid obesity and multiple comorbidities Chronic kidney disease: Her creatinine seems to be around 1.6-1.8 I would hold SUZANNA/ARB for now Nonpurulent cellulitis of abdominal pannus I will keep her on doxycycline for now and use nystatin powder Mixed connective tissue disorder with restrictive lung disease follows up with motorcycle assembler and it support specialist Full code DVT prophylaxis Lovenox will change to heparin if creatinine is worsening Cardiac diet Attestations Medical Necessity Statement*: Continued current management for hypoxic restaurant failure secondary to COVID-19 pneumonia Time Spent in Patient Care: 30 minutes Coding Level of Care Code Acute Finish Inspector for [facility] Diagnoses Acute respiratory failure with hypoxia J96.01 Cellulitis L03.90 Mixed connective tissue disease M35.1 COVID-19 U07.1
[2021-04-29] MEDS: remdesivir 100 MG in sodium chloride 0.9% (100 ml) 100 ML IV (17:22)
[2021-04-29] MEDS: doxycycline 100 mg Tablet PO (17:22)
[2021-04-29] MEDS: amlodipine 5 mg Tablet PO (17:23)
[2021-04-29] MEDS: nystatin powder 15 gm Btl 1 APPLIC TOPICAL (17:24)
[2021-04-29] MEDS: enoxaparin 40 mg/0.4 mL Syringe SUBCUT (22:00)
[2021-04-29] MEDS: dexamethasone 4 mg/mL INJ 6 MG IVP (22:01)
[2021-04-30] VITALS (15 sets, daily range): BP systolic 102–142; BP diastolic 49–98; PULSE 62–92; RESP 17–22; TEMP 36.4–37.1; O2SAT 87–93
[2021-04-30] MEDS: ipratropium-albuterol 3 mL Neb INHALATION ×2 (03:00→08:19)
[2021-04-30 04:59] LABS: Hematocrit 41.3 % (37.0-47.0); Hemoglobin 13.2 g/dL (11.5-15.3); Lymphocytes # 0.5 10^3/uL (0.8-4.8); Lymphocytes % 15.2 %; Mean Corpuscular Hemoglobin 29.1 pg (28.0-34.0); Mean Platelet Volume 11.8 fL (7.4-10.4); Monocytes # 0.4 10^3/uL (0.2-0.9); Monocytes % 11.8 %; Neutrophils # 2.56 10^3/uL (1.8-7.7); Neutrophils % 72.2 %; Nucleated Red Blood Cells % 0 %; Platelet Count 187 10^3/cmm (130-400); Red Blood Count 4.54 10^6/uL (4.1-5.3); Red Cell Distribution Width 13.3 % (12.1-15.1); White Blood Count 3.6 10^3/uL (4.0-10.0)
[2021-04-30 05:19] LABS: Alanine Aminotransferase 12 U/L (0-33); Albumin Level 2.7 g/dL (3.5-5.2); Alkaline Phosphatase 93 IU/L (35-105); Anion Gap 15.5 (5-19); Aspartate Amino Transferase 35 U/L (0-32); Blood Urea Nitrogen 65 mg/dL (8-23); Calcium 8.1 mg/dL (8.5-10.5); Carbon Dioxide 23 mmol/L (22-29); Chloride 101 mmol/L (98-107); Globulin 3.6 g/dL (1.3-4.6); Glucose 128 mg/dL (65-115); Osmolality Calculated 300 mOsm/kg (285-295); Potassium 4.5 mmol/L (3.5-5.1); Sodium 135 mmol/L (136-145); Total Bilirubin 0.2 mg/dL (0.15-1.2); Total Protein 6.3 g/dL (6.6-8.7)
[2021-04-30 05:23] LABS: Creatinine Clr Calc Pharmacy 56.6826
[2021-04-30] MEDS: nystatin powder 15 gm Btl 1 APPLIC TOPICAL ×2 (08:33→17:12)
[2021-04-30] MEDS: metoprolol tartrate 25 mg Tablet 12.5 MG PO ×2 (08:33→17:12)
[2021-04-30] MEDS: citalopram 20 mg Tablet 10 MG PO (08:33)
[2021-04-30] MEDS: levothyroxine 50 mcg Tablet PO (08:33)
[2021-04-30] MEDS: aspirin 81 mg EC Tablet PO (08:33)
[2021-04-30] MEDS: benzonatate 100 mg Capsule PO (08:33)
[2021-04-30] MEDS: doxycycline 100 mg Tablet PO ×2 (08:33→17:12)
[2021-04-30] MEDS: hydroxychloroquine 200 mg Tablet PO ×2 (08:35→17:12)
[2021-04-30] MEDS: FUROsemide 10 mg/mL SDV 4mL 40 MG IVP (11:45)
[2021-04-30] MEDS: albuterol 8 gm MDI 2 PUFF INHALATION ×2 (15:42→20:53)
[2021-04-30] MEDS: amlodipine 5 mg Tablet PO (17:12)
[2021-04-30] MEDS: remdesivir 100 MG in sodium chloride 0.9% (100 ml) 100 ML IV (17:22)
--- NOTE | 2021-04-30 18:13 | PM.PN ---
Subjective Subjective: Interval history: No events overnight, however she is requiring 8 L of humidified high flow today patient is endorsing feeling better Vitals/I&O/Wt Last Vital Signs Temp 97.6 F 04/30/21 16:00 Pulse 69 04/30/21 16:00 Resp 20 H 04/30/21 16:00 BP 122/49 04/30/21 16:00 Pulse Ox 90 04/30/21 16:00 04/30/21 04/30/21 04/30/21 06:59 14:59 22:59 Intake Total 360 / 360 Output Total 600 / 600 Balance -600 / 520 360 / 360 Physical Exam Narrative: EXAM NARRATIVE: Patient was laying supine when entered the room on 8 L minified high flow No active chest pain No acute respiratory distress Bilateral breath sounds with rhonchi and crackles Abdomen distended, Abdominal pannus cellulitis seems to be improving Lower extremity nonpitting edema Appropriate mood and affect EOMI, PERRLA Data : 04/30/21 04:49 04/30/21 04:49 Micro: Microbiology 04/29/21 11:25 Blood Culture - Preliminary Blood NEGATIVE TO DATE 04/29/21 11:21 Blood Culture - Preliminary Blood NEGATIVE TO DATE A&P Assessment and plan (1) Acute respiratory failure with hypoxia: Status: Acute (2) FELISA (acute kidney injury): Status: Acute (3) Cellulitis: Status: Acute (4) Restrictive lung disease: Status: Acute (5) Mixed connective tissue disease: Status: Acute Additional A&P Information Acute hypoxic respiratory failure Due to COVID-19 Patient is not vaccinated Status post interleukin-6 inhibitor given on 04/28, currently getting remdesivir and steroids At home she uses 2 to 3 L of oxygen Currently requiring 8 L which has gone up from yesterday PE ruled out Chronic kidney disease: Her creatinine is improving Nonpurulent cellulitis continue doxycycline with nystatin powder, it is showing signs of improvement Acute kidney injury: Improving, continue Lasix will change to 40 p.o. daily Full code Cardiac diet Continue Lovenox her creatinine has not worsened Attestations Medical Necessity Statement*: Continue medical management currently requiring 8 L which has worsened since yesterday Time Spent in Patient Care: 30mins Coding Level of Care Code Acute Storage Garage Manager for monserrat Mcconnell Diagnoses Acute respiratory failure with hypoxia J96.01 FELISA (acute kidney injury) N17.9 Cellulitis L03.90 Restrictive lung disease J98.4 Mixed connective tissue disease M35.1
[2021-04-30] MEDS: dexamethasone 4 mg/mL INJ 6 MG PO (20:01)
[2021-04-30] MEDS: enoxaparin 40 mg/0.4 mL Syringe SUBCUT (22:38)
[2021-05-01] VITALS (72 sets, daily range): BP systolic 113–123; BP diastolic 52–60; PULSE 60–95; RESP 16–32; TEMP 36.6–36.8; O2SAT 74–94
[2021-05-01] MEDS: albuterol 8 gm MDI 2 PUFF INHALATION ×7 (00:40→23:43)
[2021-05-01 04:04] LABS: Basophils % 0.2 %; Hematocrit 43.1 % (37.0-47.0); Lymphocytes # 0.6 10^3/uL (0.8-4.8); Lymphocytes % 11.8 %; Mean Corpuscular HGB Conc 32.5 g/dL (30.0-36.0); Mean Corpuscular Hemoglobin 29.2 pg (28.0-34.0); Mean Platelet Volume 11.6 fL (7.4-10.4); Monocytes # 0.5 10^3/uL (0.2-0.9); Monocytes % 10.4 %; Neutrophils # 3.79 10^3/uL (1.8-7.7); Nucleated Red Blood Cells % 0 %; Platelet Count 238 10^3/cmm (130-400); Red Blood Count 4.79 10^6/uL (4.1-5.3); Red Cell Distribution Width 13.2 % (12.1-15.1)
[2021-05-01 04:24] LABS: Alanine Aminotransferase 12 U/L (0-33); Albumin Level 2.8 g/dL (3.5-5.2); Alkaline Phosphatase 89 IU/L (35-105); Anion Gap 15.9 (5-19); Aspartate Amino Transferase 30 U/L (0-32); Blood Urea Nitrogen 66 mg/dL (8-23); C Reactive Protein 89.6 mg/L (0.0-4.9); Calcium 8.3 mg/dL (8.5-10.5); Carbon Dioxide 23 mmol/L (22-29); Chloride 104 mmol/L (98-107); Globulin 3.3 g/dL (1.3-4.6); Glomerular Filtration Rate 49.7 mL/min (90-130); Glucose 134 mg/dL (65-115); Osmolality Calculated 307 mOsm/kg (285-295); Potassium 4.9 mmol/L (3.5-5.1); Sodium 138 mmol/L (136-145); Total Bilirubin 0.2 mg/dL (0.15-1.2); Total Protein 6.1 g/dL (6.6-8.7)
[2021-05-01 04:25] LABS: Creatinine Clr Calc Pharmacy 66.9885; Lactate Dehydrogenase 432 U/L (135-214)
--- NOTE | 2021-05-01 07:59 | XR_ITS ---
WS: [id number] PORTABLE CHEST HISTORY: hypoxia COMPARISON: 04/28/2021 Lung volumes are decreased. Bilateral opacifications, greatest centrally in a batwing distribution. P artial obscuration posterior to LEFT heart. No significant effusion. Cardiac size: Moderately enlarged cardiac silhouette. Mediastinum/Aorta: Mild atherosclerosis aorta. No osseous abnormality seen. XR/XR chest 1V portable [id number] IMPRESSION: 1. Bilateral moderate pulmonary opacifications. Pneumonia and pulmonary edema within the differential. 2. Moderate cardiomegaly.
[2021-05-01 08:59] LABS: ABG PCO2 38.9 mmHg (35-45); ABG PH Result 7.41 (7.35-7.45); Arterial Blood Gas Hematocrit 43.7 % (37-47); Base Excess ABG 0.2 mmol/L (-2.0-2.0); Blood Gas Allen Test Pos; Blood Gas Sample Site Brachial, right; Blood Gas Sample Type Arterial; HCO3 ABG 24.7 mmol/L (22-26); Oxygen Device NC; PO2 ABG 52.5 mmHg (80.0-100.0)
[2021-05-01] MEDS: levothyroxine 50 mcg Tablet PO (09:08)
[2021-05-01] MEDS: hydroxychloroquine 200 mg Tablet PO ×2 (09:08→18:33)
[2021-05-01] MEDS: aspirin 81 mg EC Tablet PO (09:09)
[2021-05-01] MEDS: doxycycline 100 mg Tablet PO ×2 (09:09→18:33)
[2021-05-01] MEDS: metoprolol tartrate 25 mg Tablet 12.5 MG PO ×2 (09:09→18:33)
[2021-05-01] MEDS: FUROsemide 40 mg Tablet PO (09:09)
[2021-05-01] MEDS: citalopram 20 mg Tablet 10 MG PO (09:10)
[2021-05-01] MEDS: nystatin powder 15 gm Btl 1 APPLIC TOPICAL ×2 (09:10→18:34)
--- NOTE | 2021-05-01 10:30 | PC.SOCIAL ---
IMM Update Pg.2 of IMM updated. Provided copy to nursing staff and asked that they take to patient.
--- NOTE | 2021-05-01 14:13 | P.PN_ITS ---
Subjective Subjective: Interval history: Patient was seen and examined this morning, no overnight events however today she is requiring 15 L of humidified oxygen via nasal cannula which will be transitioned to humidified high flow Daughter was updated We switched her finger pulse ox to pulse oximeter which can be put on her forehead ABG was requested which showed hypoxia, chest x-ray requested this morning, chest x-ray showing worsening of pulmonary infiltrates I will give her extra dose of Lasix today Patient is stating that she is not feeling any kind of distress, daughter updated Vitals/I&O/Wt Last Vital Signs Temp 97.8 F 05/01/21 08:00 Pulse 67 05/01/21 13:25 Resp 20 H 05/01/21 13:25 BP 113/52 05/01/21 13:10 Pulse Ox 91 05/01/21 13:25 04/30/21 05/01/21 05/01/21 22:59 06:59 14:59 Intake Total 680 / 1040 240 / 1280 120 / 120 Output Total 300 / 300 600 / 900 1200 / 1200 Balance 380 / 740 -360 / 380 -1080 / -1080 Physical Exam Narrative: EXAM NARRATIVE: female currently on 15 L nasal cannula oxygen She is not complaining of any active chest pain or shortness of breath Her left abdominal pannus/cellulitis seems improved no active drainage or signs of worsening of cellulitis Bilateral breath sounds with crepitation no crackles S1, S2 sinus rhythm Abdomen distended with obesity Morbidly obese female Awake alert oriented x3 GCS 15 No joint swelling Hammertoes with non pitting edema of leg Data : 05/01/21 03:48 05/01/21 03:48 Micro: Microbiology 04/29/21 11:25 Blood Culture - Preliminary Blood NEGATIVE TO DATE 04/29/21 11:21 Blood Culture - Preliminary Blood NEGATIVE TO DATE A&P Assessment and plan (1) Acute respiratory failure with hypoxia: Status: Acute (2) FELISA (acute kidney injury): Status: Acute (3) Cellulitis: Status: Acute (4) Restrictive lung disease: Status: Acute (5) Mixed connective tissue disease: Status: Acute (6) COVID-19: Status: Acute Additional A&P Information Acute hypoxic respiratory failure secondary to COVID-19 pneumonia Oxygen requirement has been increasing, currently requiring 15 L which has gone up from 8 L , at admission she was requiring 3 L Repeat ABG today which showed severe hypoxia Patient endorsing no chest pain or shortness of breath, chest x-ray was repeated today which is showing worsening of pulmonary infiltrates bilaterally, will give her extra dose of IV Lasix and if her oxygen requirement is increasing, will transition to ICU Interleukin-6 inhibitor 04/28 Continue remdesivir and steroids Not a good candidate for proning Incentive spirometry Ventolin Abdominal pannus cellulitis: On doxycycline: Improving Acute kidney injury: Improved, will give her extra dose of Lasix today Full code Cardiac diet Lovenox for DVT prophylaxis Considering mixed connective tissue disorder Raynaud's phenomenon restrictive lung disease she is at high risk of mortality and morbidity this was discussed with her daughter as well who expressed understanding Attestations Medical Necessity Statement*: Continue medical management for COVID-19 pneumonia requiring high concentration of oxygen Time Spent in Patient Care: 30mins Coding Level of Care Code 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
[2021-05-01] MEDS: FUROsemide 10 mg/mL SDV 10mL 60 MG IVP (15:19)
[2021-05-01] MEDS: amlodipine 5 mg Tablet PO (18:33)
[2021-05-01] MEDS: remdesivir 100 MG in sodium chloride 0.9% (100 ml) 100 ML IV (18:33)
[2021-05-01] MEDS: dexamethasone 4 mg/mL INJ 6 MG PO (18:34)
[2021-05-01] MEDS: enoxaparin 40 mg/0.4 mL Syringe SUBCUT (22:04)
[2021-05-02] VITALS (18 sets, daily range): BP systolic 101–127; BP diastolic 43–63; PULSE 57–85; RESP 18–29; TEMP 36.6–37.1; O2SAT 64–92
[2021-05-02] MEDS: albuterol 8 gm MDI 2 PUFF INHALATION ×6 (03:19→23:06)
[2021-05-02 04:40] LABS: ABG PCO2 41.1 mmHg (35-45); ABG PH Result 7.42 (7.35-7.45); Arterial Blood Gas Hematocrit 45.8 % (37-47); Base Excess ABG 2.1 mmol/L (-2.0-2.0); Blood Gas Allen Test Pos; Blood Gas Sample Site Radial, right; Blood Gas Sample Type Arterial; HCO3 ABG 26.8 mmol/L (22-26); Oxygen Device HAG; PO2 ABG 48.9 mmHg (80.0-100.0)
[2021-05-02 06:51] LABS: Basophils % 0.3 %; Hematocrit 45.2 % (37.0-47.0); Hemoglobin 14.3 g/dL (11.5-15.3); Lymphocytes # 0.5 10^3/uL (0.8-4.8); Lymphocytes % 8.4 %; Mean Corpuscular HGB Conc 31.6 g/dL (30.0-36.0); Mean Corpuscular Hemoglobin 28.9 pg (28.0-34.0); Mean Corpuscular Volume 91.5 fL (81-99); Mean Platelet Volume 11.3 fL (7.4-10.4); Monocytes # 0.7 10^3/uL (0.2-0.9); Monocytes % 12.4 %; Neutrophils # 4.58 10^3/uL (1.8-7.7); Neutrophils % 76.6 %; Nucleated Red Blood Cells % 0 %; Platelet Count 246 10^3/cmm (130-400); Red Blood Count 4.94 10^6/uL (4.1-5.3); Red Cell Distribution Width 13.3 % (12.1-15.1)
[2021-05-02 07:38] LABS: Anion Gap 15.6 (5-19); Blood Urea Nitrogen 68 mg/dL (8-23); C Reactive Protein 48.1 mg/L (0.0-4.9); Calcium 8.6 mg/dL (8.5-10.5); Carbon Dioxide 25 mmol/L (22-29); Chloride 105 mmol/L (98-107); Ferritin 936 ng/mL (15-150); Glomerular Filtration Rate 55.5 mL/min (90-130); Glucose 138 mg/dL (65-115); NT Pro B Type Natriuretic Pept 338 pg/mL (0-125); Osmolality Calculated 314 mOsm/kg (285-295); Potassium 4.6 mmol/L (3.5-5.1); Sodium 141 mmol/L (136-145)
[2021-05-02] MEDS: levothyroxine 50 mcg Tablet PO (09:15)
[2021-05-02] MEDS: hydroxychloroquine 200 mg Tablet PO ×2 (09:15→18:42)
[2021-05-02] MEDS: metoprolol tartrate 25 mg Tablet 12.5 MG PO ×2 (09:15→18:42)
[2021-05-02] MEDS: doxycycline 100 mg Tablet PO ×2 (09:16→18:42)
[2021-05-02] MEDS: citalopram 20 mg Tablet 10 MG PO (09:16)
[2021-05-02] MEDS: FUROsemide 40 mg Tablet PO (09:17)
[2021-05-02] MEDS: aspirin 81 mg EC Tablet PO (09:18)
[2021-05-02] MEDS: nystatin powder 15 gm Btl 1 APPLIC TOPICAL ×2 (09:19→18:45)
--- NOTE | 2021-05-02 14:21 | PM.PN ---
Subjective Subjective: Interval history: Patient currently is on heated high flow 45 L 80% FiO2 Patient is endorsing feeling improved today, she is denying chest pain, abdominal pain, however her oxygen requirement has been increasing Chest x-ray that was done yesterday showed worsening opacification BNP less than 400 Vitals/I&O/Wt Last Vital Signs Temp 98.7 F 05/02/21 12:00 Pulse 63 05/02/21 12:00 Resp 21 H 05/02/21 12:00 BP 101/43 05/02/21 12:00 Pulse Ox 91 05/02/21 12:00 05/01/21 05/02/21 05/02/21 22:59 06:59 14:59 Intake Total 165 / 285 100 / 385 480 / 480 Output Total 200 / 200 Balance 165 / -1265 100 / -1165 280 / 280 Physical Exam Narrative: EXAM NARRATIVE: morbidly obese female who was saturating well 92% on 45 L 80% FiO2 heated high flow Not complaining of active pain No acute respite distress S1, S2 Bilateral breath sounds with inspiratory and expiratory crackles, diffuse Distended abdomen with obesity nontender no signs of peritonitis bowel sounds present Lower extremity nonpitting edema hammertoes EOMI, PERRLA GCS 15 Pleasant mood very cooperative during my evaluation Data : 05/02/21 05:58 05/02/21 05:58 A&P Assessment and plan (1) Acute respiratory failure with hypoxia: Status: Acute (2) FELISA (acute kidney injury): Status: Acute (3) Cellulitis: Status: Acute (4) Restrictive lung disease: Status: Acute (5) Mixed connective tissue disease: Status: Acute (6) COVID-19: Status: Acute Additional A&P Information Acute hypoxic restaurant failure secondary COVID-19 pneumonia Her O2 requirement has been increasing today she is requiring 80% FiO2 45 L heated high flow however clinically patient is not endorsing any chest pain or shortness of breath in fact she is endorsing feeling better Status post interleukin-6 inhibitor dose 04/28 Last dose of remdesivir tomorrow Continue steroids Incentive spirometry, Ventolin, Requested physical therapy to work with her as she is not a very good candidate for proning ABG reviewed showed hypoxia Abdominal wall/pannus cellulitis: Improved: We will discontinue doxycycline tomorrow FELISA: Improved Full code Cardiac diet Lovenox for DVT prophylaxis Attestations Medical Necessity Statement*: Continue medical management for worsening hypoxia of COVID-19 pneumonia Time Spent in Patient Care: 30mins Coding Level of Care Code Acute Hotel Director for g Fwd Diagnoses Acute respiratory failure with hypoxia J96.01 FELISA (acute kidney injury) N17.9 Cellulitis L03.90 Restrictive lung disease J98.4 Mixed connective tissue disease M35.1 COVID-19 U07.1
[2021-05-02] MEDS: amlodipine 5 mg Tablet PO (18:42)
[2021-05-02] MEDS: dexamethasone 4 mg/mL INJ 6 MG PO (18:43)
[2021-05-02] MEDS: remdesivir 100 MG in sodium chloride 0.9% (100 ml) 100 ML IV (18:43)
[2021-05-02] MEDS: enoxaparin 40 mg/0.4 mL Syringe SUBCUT (20:15)
--- NOTE | 2021-05-02 20:31 | PC.NURSE ---
Dr. Priest notified of patient's oxygen saturation maintaining 80-85 percent while resting in bed on high flow. When patient got up to bedside commode, oxygen saturation dropped to 69 percent with good waveform and patent became very short of breath. Ordered to place burris.
--- NOTE | 2021-05-02 21:20 | PC.NURSE ---
RT states that patient has been turned up from 80 percent to 90 percent on high flow. Patient oxygen saturation is currently ranging 85 to 87 percent. Will monitor.
--- NOTE | 2021-05-02 23:11 | PC.NURSE ---
Patient did not have an IV when I arrived upon shift. Day shift nurse unable to get IV and housefellow unable to get IV. Two 18 gauge IVs obtained by ICU nurse using ultrasound machine.
[2021-05-03] VITALS (124 sets, daily range): BP systolic 109–140; BP diastolic 46–80; PULSE 57–88; RESP 18–38; TEMP 36.5–37.1; O2SAT 73–100
[2021-05-03] MEDS: albuterol 8 gm MDI 2 PUFF INHALATION ×2 (03:17→19:21)
[2021-05-03 04:56] LABS: ABG PCO2 41.9 mmHg (35-45); ABG PH Result 7.43 (7.35-7.45); Arterial Blood Gas Hematocrit 45.6 % (37-47); Base Excess ABG 3.2 mmol/L (-2.0-2.0); Blood Gas Allen Test Pos; Blood Gas Sample Site Radial, right; Blood Gas Sample Type Arterial; HCO3 ABG 27.9 mmol/L (22-26); Oxygen Device HAG; PO2 ABG 44.7 mmHg (80.0-100.0)
[2021-05-03 07:14] LABS: D Dimer 1.37 ug/mIFEU (0-0.59)
[2021-05-03 07:22] LABS: Blood Urea Nitrogen 68 mg/dL (8-23); C Reactive Protein 24.6 mg/L (0.0-4.9); Calcium 8.5 mg/dL (8.5-10.5); Carbon Dioxide 26 mmol/L (22-29); Chloride 107 mmol/L (98-107); Glomerular Filtration Rate 55.5 mL/min (90-130); Glucose 105 mg/dL (65-115); Osmolality Calculated 314 mOsm/kg (285-295); Sodium 142 mmol/L (136-145)
[2021-05-03 07:25] LABS: Anion Gap 13.4 (5-19); Lactate Dehydrogenase 576 U/L (135-214); Potassium 4.4 mmol/L (3.5-5.1)
--- NOTE | 2021-05-03 08:00 | PC.NURSE ---
Pt had a hypoxic event this morning, spo2 sats dropped into the low 70's, pt was on 90% heated high flow, physician notified and respiratory obtained ABG and put pt on bipap, pt is awaiting ICU transfer pending bed availability. Current VS are stable.
[2021-05-03 08:04] LABS: ABG PCO2 40.8 mmHg (35-45); ABG PH Result 7.45 (7.35-7.45); Alveolar-Arterial Oxygen Gradi 82.3 mmHg (5-10); Arterial Blood Gas Hematocrit 45.4 % (37-47); Blood Gas Allen Test Pos; Blood Gas Operator Identificat MONRO; Blood Gas Sample Site Radial, left; Blood Gas Sample Type Arterial; Carboxyhemoglobin 0.7 %THgb (0.4-20.1); HCO3 ABG 28.4 mmol/L (22-26); Ionized Calcium Level - ABG 1.2 mmol/L (1.1-1.4); Methemoglobin 0.8 % (0.4-1.5); Oxygen Device NC; PO2 ABG 33.1 mmHg (80.0-100.0); Potassium Level - ABG 4.1 mmol/L (3.5-5.0); Total Hemoglobin 14.8 g/dL (12-16)
--- NOTE | 2021-05-03 09:59 | PC.NURSE ---
Report called to DEMETRA Moss in ICU. Pt will be transported to CT and then from there be in route to ICU.
--- NOTE | 2021-05-03 11:20 | PC.NURSE ---
Pt to floor 1030 Received pt from CSU by bed. Pt brought by pt care nurse Bharati PARKINSON and Mayra COHEN. Pt is currently on bipap at 100%. She did have an 18 guage IV to left upper arm that is infiltrated. IV has been removed. New IV has been started to left AC. Pt is currently satting in the mid 90's. Her family has been contacted by CSU nurse on transfer.
--- NOTE | 2021-05-03 11:41 | PC.SOCIAL ---
IMM NOT GIVEN IMM not given due to patient being transferred to ICU, not planning to d/c in the next 48hrs.
--- NOTE | 2021-05-03 13:11 | PM.PN ---
Subjective Subjective: Interval history: I was called by respiratory therapist to notify me about her hypoxia and requiring 55 L of oxygen FiO2 100% I requested a blood gas which showed severe hypoxia PaO2 33 for which he was transferred to ICU however BiPAP was put on immediately which improved her O2 saturation to 95% on humidified high flow she was 72%, requesting blood gas in ICU row, D-dimer came back 1.37 requested CTA and transition to Lovenox every 12 therapeutic dose Family updated, talked with her daughter today around 8AM She endorsed feeling short of breath today with worsening of her cough Vitals/I&O/Wt Last Vital Signs Temp 97.7 F 05/03/21 12:00 Pulse 63 05/03/21 12:00 Resp 35 H 05/03/21 12:00 BP 140/61 05/03/21 12:00 Pulse Ox 95 05/03/21 12:00 05/02/21 05/03/21 05/03/21 22:59 06:59 14:59 Intake Total 460 / 940 300 / 1240 300 / 300 Output Total 450 / 650 1050 / 1050 Balance 460 / 740 -150 / 590 -750 / -750 Physical Exam Narrative: EXAM NARRATIVE: elderly female Morbidly obese She was on BiPAP at the time of my evaluation saturating well She endorsed feeling short of breath today with worsening of her cough By lateral diminished breath sounds with inspiratory and expiratory crackles No acute respiratory distress Distended abdomen Lower extremity nonpitting edema EOMI, PERRLA GCS 15 Anxious mood Urinary Catheter Management^: Ayala: Cath Placed During This Visit: yes Reason for Continuing Indwelling Catheter: Other Urinary Catheter Date of Insertion: 05/02/21 Urinary Catheter Time of Insertion: 23:10 Data : 05/02/21 05:58 05/03/21 06:10 A&P Assessment and plan (1) Acute respiratory failure with hypoxia: Status: Acute (2) FELISA (acute kidney injury): Status: Acute (3) Cellulitis: Status: Acute (4) Restrictive lung disease: Status: Acute (5) COVID-19: Status: Acute (6) Mixed connective tissue disease: Status: Acute Additional A&P Information Acute hypoxic resp failure Worsening hypoxia secondary to COVID-19 pneumonia O2 requirement increasing with worsening of her PaO2 evident on ABG Transition to BiPAP and transferred to ICU 05/03 Requested CTA chest and transitioned her Lovenox to therapeutic dose every 12 Continue remdesivir and Decadron, not a candidate for prone, Status post interleukin-6 inhibitor 04/28 High risk for intubation mortality morbidity, family updated FELISA: Resolved Continue losartan and Lasix Abdominal wall cellulitis: Improved discontinue doxycycline Mixed connective tissue disorder/restrictive lung disease: I have continued her hydroxychloroquine Carries guarded prognosis because of her multiple comorbid conditions with COVID-19 worsening hypoxic resp failure Full code DVT prophylaxis started therapeutic dose of Lovenox Family updated Attestations Medical Necessity Statement*: Transfer to ICU Time Spent in Patient Care: 15-30 minutes Coding Level of Care Code Acute 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
[2021-05-03] MEDS: enoxaparin 120 mg/0.8 mL Syringe SUBCUT (13:25)
[2021-05-03 15:37] LABS: ABG PCO2 44.6 mmHg (35-45); ABG PH Result 7.41 (7.35-7.45); Base Excess ABG 3.2 mmol/L (-2.0-2.0); Blood Gas Allen Test Pos; Blood Gas Operator Identificat CAK; Blood Gas Sample Site Radial, left; Blood Gas Sample Type Arterial; HCO3 ABG 28.5 mmol/L (22-26); Oxygen Device BIPAP
[2021-05-03] MEDS: dexamethasone 4 mg/mL INJ 6 MG IVP (20:47)
[2021-05-04] VITALS (73 sets, daily range): BP systolic 107–160; BP diastolic 49–78; PULSE 61–84; RESP 17–42; TEMP 36.5–37.3; O2SAT 87–98
[2021-05-04] MEDS: enoxaparin 120 mg/0.8 mL Syringe SUBCUT (00:40)
[2021-05-04] MEDS: albuterol 8 gm MDI 2 PUFF INHALATION ×4 (03:09→15:08)
[2021-05-04 03:51] LABS: ABG PCO2 45.1 mmHg (35-45); ABG PH Result 7.39 (7.35-7.45); Arterial Blood Gas Hematocrit 45.9 % (37-47); Base Excess ABG 1.5 mmol/L (-2.0-2.0); Blood Gas Allen Test Pos; Blood Gas Sample Site Radial, right; Blood Gas Sample Type Arterial; HCO3 ABG 27.1 mmol/L (22-26); Oxygen Device BIPAP; PO2 ABG 55.5 mmHg (80.0-100.0)
--- NOTE | 2021-05-04 04:10 | PC.NURSE ---
Family Updated; Patient's daughter updated on POC and overall existing current status. All question answered. RN mentioned video calling in efforts to raise patient's spirits and decrease anxiety/depression. Daughter stated she would be in facility this morning, and would come by to give appearance at patient's door, as well.
[2021-05-04 05:50] LABS: Basophils # 0.1 10^3/uL (0.0-0.1); Basophils % 0.4 %; Hematocrit 46.6 % (37.0-47.0); Hemoglobin 14.7 g/dL (11.5-15.3); Lymphocytes # 0.7 10^3/uL (0.8-4.8); Lymphocytes % 5.2 %; Mean Corpuscular HGB Conc 31.5 g/dL (30.0-36.0); Mean Corpuscular Hemoglobin 29.5 pg (28.0-34.0); Mean Corpuscular Volume 93.4 fL (81-99); Mean Platelet Volume 12.5 fL (7.4-10.4); Monocytes # 0.4 10^3/uL (0.2-0.9); Neutrophils # 11.68 10^3/uL (1.8-7.7); Neutrophils % 89.1 %; Nucleated Red Blood Cells % 0 %; Platelet Count 233 10^3/cmm (130-400); Red Blood Count 4.99 10^6/uL (4.1-5.3); Red Cell Distribution Width 13.4 % (12.1-15.1); White Blood Count 13.1 10^3/uL (4.0-10.0)
[2021-05-04 06:34] LABS: Ferritin 915 ng/mL (15-150)
--- NOTE | 2021-05-04 08:15 | XRR_ITS ---
PROCEDURE INFORMATION: Exam: XR Chest Exam date and time: 05/04/2021 8:15 AM Age: 65 years old Clinical indication: Shortness of breath; Additional info: Hypoxia TECHNIQUE: Imaging protocol: XR of the chest. Views: 1 view. COMPARISON: CR XR chest 1V portable [id number] 05/01/2021 8:14 AM FINDINGS: Lungs: Extensive bilateral airspace disease, with mild interval worsening in right basilar airspace disease. Pleural spaces: Left pleural effusion. Heart/Mediastinum: No cardiomegaly. Vasculature: Calcification of the thoracic aorta. Bones/joints: Osteopenia and degenerative change. XR/XR chest 1V portable [id number] IMPRESSION: 1. Extensive bilateral airspace disease, with mild interval worsening in right basilar airspace disease. 2. Left pleural effusion.
[2021-05-04] MEDS: FUROsemide 10 mg/mL SDV 4mL 40 MG IVP (08:17)
[2021-05-04 10:38] LABS: Anion Gap 16.5 (5-19); Blood Urea Nitrogen 44 mg/dL (8-23); C Reactive Protein 17.7 mg/L (0.0-4.9); Calcium 8.6 mg/dL (8.5-10.5); Carbon Dioxide 25 mmol/L (22-29); Chloride 110 mmol/L (98-107); Glomerular Filtration Rate 71.8 mL/min (90-130); Glucose 120 mg/dL (65-115); Osmolality Calculated 316 mOsm/kg (285-295); Potassium 4.5 mmol/L (3.5-5.1); Sodium 147 mmol/L (136-145)
--- NOTE | 2021-05-04 11:54 | PM.PN ---
Subjective Subjective: Interval history: PICC line to be inserted today, Carolin on hold Letter eat with BiPAP break around lunchtime, I will discontinue her Lasix Noticed hyponatremia, patient feeling extremely dry and dehydrated Currently on BiPAP settings 8 and 14 FiO2 75% Awake alert no overnight events, She will get CTA chest after placement of PICC line Lasix discontinued 04/30 Vitals/I&O/Wt Last Vital Signs Temp 98.3 F 05/04/21 07:36 Pulse 76 05/04/21 11:33 Resp 28 H 05/04/21 11:20 BP 132/66 05/04/21 07:36 Pulse Ox 98 05/04/21 11:20 05/03/21 05/04/21 05/04/21 22:59 06:59 14:59 Intake Total 300 / 600 50 / 650 Output Total 1450 / 2500 850 / 3350 Balance -1150 / -1900 -800 / -2700 Physical Exam Narrative: EXAM NARRATIVE: Patient on BiPAP in ICU Feeling better BiPAP settings 14/8 FiO2 75% S1, S2 patient looks euvolemic Bilateral lower extremity nonpitting edema Abdomen distended with obesity no signs of peritonitis EOMI, PERRLA no active signs of shortness of breath Appropriate mood and affect Mild petechiae and bruises all over her extremities Abdominal wall cellulitis improved Urinary Catheter Management^: Ayala: Cath Placed During This Visit: yes Reason for Continuing Indwelling Catheter: Accurate Measurement of Urinary Output in Critically Ill Patients Urinary Catheter Date of Insertion: 05/02/21 Urinary Catheter Time of Insertion: 23:10 Data : 05/04/21 03:25 05/04/21 09:06 Micro: Microbiology 04/29/21 11:25 Blood Culture - Final Blood NO GROWTH AFTER 5 DAYS 04/29/21 11:21 Blood Culture - Final Blood NO GROWTH AFTER 5 DAYS A&P Assessment and plan (1) Acute respiratory failure with hypoxia: Status: Acute (2) FELISA (acute kidney injury): Status: Acute (3) Cellulitis: Status: Acute (4) Restrictive lung disease: Status: Acute (5) Mixed connective tissue disease: Status: Acute (6) COVID-19: Status: Acute Additional A&P Information Acute hypoxic respiratory failure secondary to COVID-19 pneumonia Patient on transfer to ICU on 05/03, ABG today reveals relative hypoxia on BiPAP FiO2 75% currently saturating 95% No acute respiratory distress We will get CTA chest after PICC line placement, Lovenox therapeutic dose initiated currently on hold in anticipation of PICC line placement High risk of mortality morbidity, family updated Hypernatremia: Patient has stayed on BiPAP since yesterday, free water deficit noted, will discontinue Lasix and I will let her eat and give her a BiPAP break) hematocrit have low for a few hours, glucose 120 FELISA: Improved Abdominal wall cellulitis: Improved doxycycline discontinued on 05/03 Consistent carb diet Full code Currently on therapeutic dose of Lovenox Attestations Medical Necessity Statement*: Continue medical management in ICU for worsening hypoxia due to COVID-19 Time Spent in Patient Care: 30mins Coding Level of Care Code Acute 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
[2021-05-04 12:20] LABS: Lactate Dehydrogenase 950 U/L (135-214)
--- NOTE | 2021-05-04 12:33 | XRR_ITS ---
PROCEDURE INFORMATION: Exam: XR Chest Exam date and time: 05/04/2021 12:33 PM Age: 65 years old Clinical indication: Device placement; Patient HX: Picc placement TECHNIQUE: Imaging protocol: XR of the chest. Views: 1 view. COMPARISON: CR (CHEST, ) 05/04/2021 8:26 AM FINDINGS: Tubes, catheters and devices: Termination of right PICC line at the cavoatrial junction. Lungs: Bilateral interstitial/airspace disease. Pleural spaces: No significant pneumothorax. Left pleural effusion. Heart/Mediastinum: No cardiomegaly. Vasculature: Calcification of the thoracic aorta. Bones/joints: Osteopenia and degenerative change. XR/XR chest 1V portable [id number] IMPRESSION: 1. Termination of right PICC line at the cavoatrial junction. 2. Additional findings as described above.
--- NOTE | 2021-05-04 13:28 | PC.NURSE ---
PICC RIGHT arm ready for use. Primary nurse, Isa, notified.
[2021-05-04 18:10] LABS: ABG PCO2 45.1 mmHg (35-45); ABG PH Result 7.41 (7.35-7.45); Arterial Blood Gas Hematocrit 46.6 % (37-47); Blood Gas Allen Test Pos; Blood Gas Operator Identificat MONRO; Blood Gas Sample Site Radial, left; Blood Gas Sample Type Arterial; HCO3 ABG 28.4 mmol/L (22-26); Oxygen Device BIPAP; PO2 ABG 61.6 mmHg (80.0-100.0)
[2021-05-04] MEDS: dexamethasone 4 mg/mL INJ 6 MG IVP (20:00)
[2021-05-05] VITALS (73 sets, daily range): BP systolic 133–153; BP diastolic 46–67; PULSE 59–96; RESP 18–36; TEMP 36.4–37.1; O2SAT 88–96
[2021-05-05] MEDS: albuterol 8 gm MDI 2 PUFF INHALATION ×6 (01:14→23:50)
[2021-05-05 05:10] LABS: Basophils # 0.1 10^3/uL (0.0-0.1); Basophils % 0.5 %; Hemoglobin 14.6 g/dL (11.5-15.3); Lymphocytes # 0.5 10^3/uL (0.8-4.8); Lymphocytes % 3.6 %; Mean Corpuscular HGB Conc 31.1 g/dL (30.0-36.0); Mean Corpuscular Hemoglobin 28.9 pg (28.0-34.0); Mean Corpuscular Volume 93.1 fL (81-99); Mean Platelet Volume 12.1 fL (7.4-10.4); Monocytes # 0.4 10^3/uL (0.2-0.9); Monocytes % 3.3 %; Neutrophils # 11.82 10^3/uL (1.8-7.7); Neutrophils % 89.4 %; Nucleated Red Blood Cells % 0 %; Platelet Count 229 10^3/cmm (130-400); Red Blood Count 5.05 10^6/uL (4.1-5.3); Red Cell Distribution Width 13.6 % (12.1-15.1); White Blood Count 13.2 10^3/uL (4.0-10.0)
[2021-05-05 05:56] LABS: ABG PCO2 42.7 mmHg (35-45); ABG PH Result 7.41 (7.35-7.45); Arterial Blood Gas Hematocrit 46.4 % (37-47); Base Excess ABG 1.9 mmol/L (-2.0-2.0); Blood Gas Allen Test Pos; Blood Gas Operator Identificat JB; Blood Gas Sample Site Radial, left; Blood Gas Sample Type Arterial; Oxygen Device BIPAP
--- NOTE | 2021-05-05 07:29 | PC.NURSE ---
Patient alert and oriented X3-4. Remains on Bipap 8/ and FiO2 70%. Desats easily when repositioned and when Bipap is taken off. V/S stable. Labs taken. Bath given. Patient remains stable. Care continues.
--- NOTE | 2021-05-05 10:16 | PC.SOCIAL ---
IMM UPDATE Gave patient's daughter Gwendolyn verbal IMM update. She verbalized understanding. 05/05/21 @ 1016. Initialed, dated, timed and placed in chart.
[2021-05-05 13:15] LABS: Anion Gap 11.4 (5-19); Blood Urea Nitrogen 46 mg/dL (8-23); Calcium 8.7 mg/dL (8.5-10.5); Carbon Dioxide 29 mmol/L (22-29); Chloride 111 mmol/L (98-107); Glomerular Filtration Rate 71.8 mL/min (90-130); Glucose 126 mg/dL (65-115); Osmolality Calculated 317 mOsm/kg (285-295); Potassium 4.4 mmol/L (3.5-5.1); Sodium 147 mmol/L (136-145)
--- NOTE | 2021-05-05 15:13 | PM.PN ---
Subjective Subjective: Interval history: Patient was seen and examined this morning, patient is doing well on BiPAP 70% PO2 above 50 today it is 58, patient is not complaining of any active chest pain or shortness of breath, however as per the nursing report she is BiPAP dependent has not been able to take BiPAP off for even a meal, she is getting dehydrated Lasix discontinued we will give her 500 mL bolus and encouraged p.o. water intake, labs reviewed, Vitals/I&O/Wt Last Vital Signs Temp 98.7 F 05/05/21 12:00 Pulse 67 05/05/21 14:09 Resp 26 H 05/05/21 12:23 BP 139/54 05/05/21 12:00 Pulse Ox 92 05/05/21 14:09 05/05/21 05/05/21 05/05/21 06:59 14:59 22:59 Intake Total 110 / 330 250 / 250 Output Total 780 / 3680 2230 / 2230 Balance -670 / -3350 -1979 / Physical Exam Narrative: EXAM NARRATIVE: Currently on BiPAP settings 70% 18 and 8 Saturating 92% No active chest pain or acute respiratory distress Patient is endorsing feeling better No active cyanosis gangrene ulcer S1, S2 sinus rhythm Abdomen distended bowel sound present Lower extremity no edema Bilateral assisted breath sounds, mild rhonchi at the bases Appropriate mood and affect EOMI, PERRLA no neurological deficit Urinary Catheter Management^: Ayala: Cath Placed During This Visit: yes Reason for Continuing Indwelling Catheter: Acute Urinary Retention or Obstruction Urinary Catheter Date of Insertion: 05/02/21 Urinary Catheter Time of Insertion: 23:10 Data : 05/05/21 04:50 05/05/21 12:40 Micro: Microbiology 04/29/21 11:25 Blood Culture - Final Blood NO GROWTH AFTER 5 DAYS 04/29/21 11:21 Blood Culture - Final Blood NO GROWTH AFTER 5 DAYS A&P Assessment and plan (1) Acute respiratory failure with hypoxia: Status: Acute (2) FELISA (acute kidney injury): Status: Acute (3) Cellulitis: Status: Acute (4) Restrictive lung disease: Status: Acute (5) Mixed connective tissue disease: Status: Acute (6) COVID-19: Status: Acute Additional A&P Information Acute hypoxic respiratory failure Secondary to COVID-19 pneumonia Continue remdesivir and Decadron Status post interleukin-6 nuclear dose BiPAP dependent, desaturates quickly if BiPAP mask is taken off Hypernatremia 3 L water deficit, will give her a 500 mL bolus encouraged p.o. 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
[2021-05-05 15:54] LABS: C Reactive Protein 8.5 mg/L (0.0-4.9)
[2021-05-05] MEDS: dextrose 5%-sod chloride 0.45% 1,000 ML 50 ML IV (16:40)
[2021-05-05] MEDS: dexamethasone 4 mg/mL INJ 6 MG IVP (19:58)
[2021-05-06] VITALS (28 sets, daily range): BP systolic 103–153; BP diastolic 42–72; PULSE 59–106; RESP 16–28; TEMP 36.5–36.9; O2SAT 85–95
[2021-05-06 03:47] LABS: Basophils # 0.1 10^3/uL (0.0-0.1); Basophils % 0.4 %; Hematocrit 45.3 % (37.0-47.0); Hemoglobin 14.1 g/dL (11.5-15.3); Lymphocytes # 0.3 10^3/uL (0.8-4.8); Lymphocytes % 2.9 %; Mean Corpuscular HGB Conc 31.1 g/dL (30.0-36.0); Mean Corpuscular Hemoglobin 29.6 pg (28.0-34.0); Monocytes # 0.3 10^3/uL (0.2-0.9); Monocytes % 2.4 %; Neutrophils # 10.65 10^3/uL (1.8-7.7); Neutrophils % 89.8 %; Nucleated Red Blood Cells % 0 %; Platelet Count 187 10^3/cmm (130-400); Red Blood Count 4.77 10^6/uL (4.1-5.3); Red Cell Distribution Width 13.6 % (12.1-15.1); White Blood Count 11.9 10^3/uL (4.0-10.0)
[2021-05-06 04:20] LABS: Blood Urea Nitrogen 41 mg/dL (8-23); Calcium 8.2 mg/dL (8.5-10.5); Carbon Dioxide 27 mmol/L (22-29); Chloride 113 mmol/L (98-107); Glucose 192 mg/dL (65-115); Osmolality Calculated 319 mOsm/kg (285-295); Sodium 147 mmol/L (136-145)
[2021-05-06 04:36] LABS: Anion Gap 12.7 (5-19); Potassium 5.7 mmol/L (3.5-5.1)
--- NOTE | 2021-05-06 06:44 | PC.NURSE ---
Patient spent an ueventful shift last pm. Alert and oriented X 4. Remains on Bipap with FiO2 65%. Nil distress noted. PICC line and Ayala remains in place. Patient had frequent po liquid overnight. Labs taken this am. Patient remains stable. Care continues.
[2021-05-06] MEDS: albuterol 8 gm MDI 2 PUFF INHALATION ×4 (08:03→19:15)
[2021-05-06] MEDS: losartan 50 mg Tablet 100 MG PO (08:51)
[2021-05-06] MEDS: aspirin 81 mg EC Tablet PO (08:51)
[2021-05-06] MEDS: citalopram 20 mg Tablet 10 MG PO (08:51)
[2021-05-06] MEDS: levothyroxine 50 mcg Tablet PO (08:52)
[2021-05-06] MEDS: metoprolol tartrate 25 mg Tablet 12.5 MG PO ×2 (10:00→17:10)
--- NOTE | 2021-05-06 10:00 | CT_ITS ---
WS: [id number] CTA OF THE CHEST WITH PULMONARY EMBOLISM PROTOCOL TECHNIQUE: High-resolution contrast enhanced CTA of the chest with coronal and sagittal reformatted i mages with pulmonary embolism protocol. MIP images are also reviewed. CLINICAL INFORMATION: hypoxia COMPARISON: None. DLP: 574.[address] scans at [facility] use at least one of these dose optimization techniques: automat ed exposure control; mA and/or kV adjustment per patient size (includes targeted exams where dose is matched to clinical indication); or iterative reconstruction. FINDINGS:Heterogeneously enhancing mass involving the head of the pancreas is partially evaluated gaby picious for neoplasm. This measures approximately 3.2 x 3.3 CM. This can be further evaluated with co ntrast-enhanced CT abdomen pelvis. Proximal main pulmonary arteries are normal. Normal caliber thoracic aorta. Mild aortic calcification . Segmental and subsegmental pulmonary arteries appear patent. No evidence of pulmonary embolus. Diffuse bilateral hazy groundglass infiltrates compatible with COVID19 pneumonia. Slight developing a irspace consolidation in the lower lobes bilaterally. Reactive mediastinal and right peribronchial lymphadenopathy. Cholelithiasis. Normal GE junction. Adrenal glands are normal. CT/CT angio chest PE protcl [id number] IMPRESSION: 1. Heterogeneously enhancing mass involving the head of the pancreas is partia lly evaluated suspicious for neoplasm. This measures approximately 3.2 x 3.3 CM . This can be further evaluated with contrast-enhanced CT abdomen pelvis. 2. No evidence for pulmonary embolus. Pulmonary arteries appear patent. 3. Diffuse bilateral groundglass infiltrates compatible with COVID 19 pneumoni a. Some consolidation in the lung bases. 4. Reactive mediastinal and peribronchial lymphadenopathy. 5. Cholelithiasis. Notified Edgar Durand MD at 05/06/2021 1:47 PM.
[2021-05-06] MEDS: nystatin powder 15 gm Btl 1 APPLIC TOPICAL (10:03)
[2021-05-06] MEDS: hydroxychloroquine 200 mg Tablet PO ×2 (10:04→17:10)
[2021-05-06 11:05] LABS: Specific Gravity, Urine 1.015 (1.005-1.030); Urine Appearance Clear (CLEAR); Urine Color Yellow (Yellow); pH Urine 5 (5-7)
[2021-05-06 11:06] LABS: Add Urine Microscopic? YES; Bilirubin Urine Neg (Negative); Blood Urine 2+ (Negative); Glucose Urine UA Norm (Normal); Ketones Urine Negative (Negative); Leukocyte Esterase Urine Trace (Negative); Nitrate Urine Negative (Negative); Protein Urine Neg (Negative); Urobilinogen Urine Norm (Negative)
[2021-05-06 11:08] LABS: Bacteria Urine 1+ /hpf; RBC Urine 0-4 /hpf (0-2); Squamous Epithelial Cell Urine 0-4 /hpf (0-5); WBC Urine 0-4 /hpf (0-5)
[2021-05-06 11:09] LABS: Add Urine Culture? Yes
--- NOTE | 2021-05-06 13:35 | PC.NURSE ---
transfer Pt was taken to CT and then to Med/surg in her bed. Report was given to Sharda MCCRARY over phone prior to being taken.
[2021-05-06] MEDS: iohexol 350 mg/mL 100 mL Btl IV (13:51)
[2021-05-06] MEDS: enoxaparin 120 mg/0.8 mL Syringe SUBCUT (14:24)
--- NOTE | 2021-05-06 15:10 | P.PN_ITS ---
Subjective Subjective: Interval history: Patient to be transferred out of ICU, currently saturating well on 60% FiO2 on BiPAP, 3 L water deficit Sodium 147 she received D5 half-normal saline yesterday for about 8 to 10 hours Patient is endorsing feeling better today as compared to yesterday Vitals/I&O/Wt Last Vital Signs Temp 98.5 F 05/06/21 12:00 Pulse 75 05/06/21 13:01 Resp 24 H 05/06/21 13:01 BP 144/52 05/06/21 12:00 Pulse Ox 90 05/06/21 13:01 05/06/21 05/06/21 05/06/21 06:59 14:59 22:59 Intake Total 280 / 1240 1120 / 1120 Output Total 552 / 3632 250 / 250 Balance -272 / -2392 870 / 870 Physical Exam Narrative: EXAM NARRATIVE: Patient was seen in ICU, she was doing well on BiPAP endorsing feeling better Hard to assess her volume status Face look flushed S1, S2 sinus rhythm without any murmur Bilateral assisted breath sounds with rhonchi at the bases Abdomen soft nontender bowel sound present nontender, cellulitis has improved Lower extremity no pitting edema multiple petechial bruises of her extremities noted Status post PICC line placement 05/05 Urinary Catheter Management^: Ayala: Cath Placed During This Visit: yes Reason for Continuing Indwelling Catheter: Accurate Measurement of Urinary Output in Critically Ill Patients Urinary Catheter Date of Insertion: 05/02/21 Urinary Catheter Time of Insertion: 23:10 Data : 05/06/21 03:36 05/06/21 03:36 Other Labs: 1. Heterogeneously enhancing mass involving the head of the pancreas is partially evaluated suspicious for neoplasm. This measures approximately 3.2 x 3.3 CM. This can be further evaluated with contrast-enhanced CT abdomen pelvis. 2. No evidence for pulmonary embolus. Pulmonary arteries appear patent. 3. Diffuse bilateral groundglass infiltrates compatible with COVID 19 pneumonia. Some consolidation in the lung bases. 4. Reactive mediastinal and peribronchial lymphadenopathy. 5. Cholelithiasis. A&P Assessment and plan (1) Acute respiratory failure with hypoxia: Status: Acute (2) FELISA (acute kidney injury): Status: Acute (3) Cellulitis: Status: Acute (4) Restrictive lung disease: Status: Acute (5) Mixed connective tissue disease: Status: Acute (6) COVID-19: Status: Acute Additional A&P Information Hypoxic respiratory failure due to COVID-19 Patient tolerated BiPAP very well not a proning candidate Transfer to ICU on 05/03 Transfer out of ICU 05/06 PICC line placement 05/05 Currently requiring 60% FiO2 on BiPAP PT evaluation Interleukin-6 inhibitor 04/28 Finish remdesivir and Decadron regimen CTA rule out PE Pancreatic head mass without any cystic appearance noted on CTA chest, she will need work-up for ruling of malignancy, I would not repeat CT abdomen today because she received contrast, CT abdomen pelvis before discharge Hypernatremia: 3 L water deficit Diuretics on hold, patient encouraged to increase her p.o. intake today she did not use for last 48 hours because of her worsening hypoxia over the weekend Judicious use of fluids We will give her D5 half-normal saline for about 10 hours again today Abdominal pannus cellulitis: Improved FELISA: Resolved Full code Cardiac diet Discontinue Lovenox therapeutic dose and use DVT prophylactic regimen Attestations Medical Necessity Statement*: Disposition depending on physical therapy evaluation Time Spent in Patient Care: 16 - 35 minutes Coding Level of Care Code Acute Surface Water Manager for [facility] Fwd Diagnoses Acute respiratory failure with hypoxia J96.01 FELISA (acute kidney injury) N17.9 Cellulitis L03.90 Restrictive lung disease J98.4 Mixed connective tissue disease M35.1 COVID-19 U07.1
--- NOTE | 2021-05-06 16:00 | PC.NUTR ---
Nutrition reassessment: Pt with no po intake since 05/02/21 (over 3 days without eating) due to respiratory status. Unable to tolerating removing bipap long enough to eat. Recommend to encourage po intakes of meals/fluids when safe to do so. RD available for nutrition support recommendations as needed if consistent with plan of care. See full RD assessment for further details.
[2021-05-06] MEDS: dexamethasone 4 mg/mL INJ 6 MG IVP (19:48)
[2021-05-07] VITALS (15 sets, daily range): BP systolic 103–118; BP diastolic 60–74; PULSE 75–102; RESP 15–25; TEMP -13.4–36.8; O2SAT 87–93
[2021-05-07] MEDS: albuterol 8 gm MDI 2 PUFF INHALATION ×6 (00:20→21:59)
[2021-05-07] MEDS: enoxaparin 120 mg/0.8 mL Syringe SUBCUT ×2 (01:27→14:47)
--- NOTE | 2021-05-07 07:36 | PC.NURSE ---
Notified Dr Durand that patient's daughter Shandra Davison [phone] is requesting a call from you with update on her mother.
[2021-05-07] MEDS: aspirin 81 mg EC Tablet PO (08:21)
[2021-05-07] MEDS: levothyroxine 50 mcg Tablet PO (08:21)
[2021-05-07] MEDS: hydroxychloroquine 200 mg Tablet PO ×2 (08:21→17:25)
[2021-05-07] MEDS: metoprolol tartrate 25 mg Tablet 12.5 MG PO ×2 (08:22→17:25)
[2021-05-07] MEDS: losartan 50 mg Tablet 100 MG PO (08:22)
[2021-05-07] MEDS: nystatin powder 15 gm Btl 1 APPLIC TOPICAL ×2 (08:27→17:27)
[2021-05-07] MEDS: citalopram 20 mg Tablet 10 MG PO (08:38)
--- NOTE | 2021-05-07 10:37 | PC.SOCIAL ---
IMM Updated Updated pt, via phone, on Pg 2 IMM. No questions voiced. Provided pt a copy. Initialed, dated, & timed copy in chart.
--- NOTE | 2021-05-07 16:23 | P.PN_ITS ---
Subjective Subjective: Interval history: Patient was seen and examined this morning, patient was very happy with her progress, she was able to eat her breakfast today on humidified high flow she was taken off BiPAP this morning, I talked with her daughter to give an update as well. She does not want me to discuss pancreatic mass findings with her because in her family a young person because of pancreatic cancer and she is concerned that her mother might go into deep depression Vitals/I&O/Wt Last Vital Signs Temp 7.9 F L 05/07/21 16:00 Pulse 78 05/07/21 16:00 Resp 20 H 05/07/21 16:00 BP 110/71 05/07/21 16:00 Pulse Ox 88 L 05/07/21 16:00 05/07/21 05/07/21 05/07/21 06:59 14:59 22:59 Intake Total 480 / 480 Output Total 350 / 1225 500 / 500 Balance -350 / -5 480 / 480 -500 / -20 Physical Exam Narrative: EXAM NARRATIVE: Patient was very happy this morning she was saturating well on humidified high flow She was sitting in her bedside was getting ready to eat her breakfast Bilateral breath sounds with mild rhonchi at the base She has pressure ulcer on her nose from BiPAP facemask Lower extremity non pitting edema EOMI, PERRLA no neurological deficit Appropriate mood and affect S1, S2 with signs of fluid overload Urinary Catheter Management^: Ayala: Cath Placed During This Visit: yes Reason for Continuing Indwelling Catheter: Accurate Measurement of Urinary Output in Critically Ill Patients Urinary Catheter Date of Insertion: 05/02/21 Urinary Catheter Time of Insertion: 23:10 Data : 05/06/21 03:36 05/06/21 03:36 Micro: Microbiology 05/06/21 10:34 Urine Culture - Preliminary Urine,Clean Catch A&P Assessment and plan (1) Acute respiratory failure with hypoxia: Status: Acute (2) FELISA (acute kidney injury): Status: Acute (3) Cellulitis: Status: Acute (4) Restrictive lung disease: Status: Acute (5) Mixed connective tissue disease: Status: Acute (6) COVID-19: Status: Acute Additional A&P Information Hypoxic respiratory failure secondary to COVID-19 pneumonia Patient is very happy with the progress she has been taken off BiPAP and cur rently saturating well on humidified high flow Able to eat her breakfast Transfer to ICU on 05/03 Transfer out of ICU 05/06 PICC line placement 05/05 CTA without PE Hypernatremia secondary to dehydration anticipating improvement as patient is able to eat today, she has 2.9 L water deficit, discontinued diuretics Pancreatic head mass, her daughter is concerned that she might go into depression and would like to hold this information from her mother for now, Abdominal pain of cellulitis has improved, off antibiotics now finished doxycycline course FELISA: Resolved Full code Cardiac diet Lovenox for DVT prophylaxis Attestations Medical Necessity Statement*: Anticipating discharge to a retirement once she is stable currently on humidified high flow Time Spent in Patient Care: 16 - 35 minutes Coding Level of Care Code Acute Comber Fixer for [facility] Diagnoses Acute respiratory failure with hypoxia J96.01 FELISA (acute kidney injury) N17.9 Cellulitis L03.90 Restrictive lung disease J98.4 Mixed connective tissue disease M35.1 COVID-19 U07.1
[2021-05-07] MEDS: dexamethasone 4 mg/mL INJ 6 MG IVP (20:10)
[2021-05-07] MEDS: benzonatate 100 mg Capsule PO (20:10)
[2021-05-08] VITALS (18 sets, daily range): BP systolic 97–176; BP diastolic 55–69; PULSE 72–96; RESP 11–28; TEMP 36.3–37; O2SAT 85–94
[2021-05-08 07:14] LABS: Basophils # 0.1 10^3/uL (0.0-0.1); Basophils % 0.4 %; Eosinophils % 0.1 %; Hematocrit 46.7 % (37.0-47.0); Hemoglobin 14.8 g/dL (11.5-15.3); Lymphocytes # 0.4 10^3/uL (0.8-4.8); Lymphocytes % 3.7 %; Mean Corpuscular HGB Conc 31.7 g/dL (30.0-36.0); Mean Corpuscular Volume 91.6 fL (81-99); Mean Platelet Volume 13.2 fL (7.4-10.4); Monocytes # 0.4 10^3/uL (0.2-0.9); Monocytes % 2.9 %; Neutrophils # 10.83 10^3/uL (1.8-7.7); Neutrophils % 90.4 %; Nucleated Red Blood Cells % 0 %; Platelet Count 118 10^3/cmm (130-400); Red Cell Distribution Width 13.2 % (12.1-15.1)
[2021-05-08 07:41] LABS: Anion Gap 11.1 (5-19); Blood Urea Nitrogen 32 mg/dL (8-23); Calcium 8.5 mg/dL (8.5-10.5); Carbon Dioxide 28 mmol/L (22-29); Chloride 108 mmol/L (98-107); Glucose 120 mg/dL (65-115); Osmolality Calculated 302 mOsm/kg (285-295); Potassium 5.1 mmol/L (3.5-5.1); Sodium 142 mmol/L (136-145)
--- NOTE | 2021-05-08 08:13 | PC.RESP ---
Pt on bipap and d/t low sats, unable to take off at this time for inhaler.
[2021-05-08 08:29] LABS: Slide Review Slide Review Perform
[2021-05-08] MEDS: albuterol 8 gm MDI 2 PUFF INHALATION ×3 (11:05→20:24)
[2021-05-08] MEDS: aspirin 81 mg EC Tablet PO (11:21)
[2021-05-08] MEDS: losartan 50 mg Tablet 100 MG PO (11:21)
[2021-05-08] MEDS: metoprolol tartrate 25 mg Tablet 12.5 MG PO ×2 (11:21→19:07)
[2021-05-08] MEDS: citalopram 20 mg Tablet 10 MG PO (11:22)
[2021-05-08] MEDS: hydroxychloroquine 200 mg Tablet PO ×2 (11:22→19:08)
[2021-05-08] MEDS: levothyroxine 50 mcg Tablet PO (11:22)
--- NOTE | 2021-05-08 13:12 | PM.PN ---
Subjective Subjective: Interval history: Patient is stating that she did well all day yesterday but at night she started experiencing shortness of breath which she required BiPAP this morning she was on BiPAP settings 12/ FiO2 100% and was complaining of lethargy and fatigue, currently to breakfast this morning Sodium 142 Vitals/I&O/Wt Last Vital Signs Temp 97.9 F 05/08/21 11:47 Pulse 78 05/08/21 11:47 Resp 18 05/08/21 11:47 BP 137/69 05/08/21 11:47 Pulse Ox 87 L 05/08/21 11:47 05/07/21 05/08/21 05/08/21 22:59 06:59 14:59 Output Total 500 / 500 0 / 500 Balance -500 / -20 0 / -20 Physical Exam Narrative: EXAM NARRATIVE: On BiPAP today feeling short of breath complaining of fatigue and lethargy Has not done well with physical therapy BiPAP setting 09/16 FiO2 100% S1, S2 with signs of congestive heart failure Low extremity nonpitting edema Abdomen soft nontender abdominal cellulitis improved EOMI, PERRLA Pressure ulcer on nose around facemask Assisted bilateral breath sounds with rhonchi Urinary Catheter Management^: Ayala: Cath Placed During This Visit: yes Reason for Continuing Indwelling Catheter: Accurate Measurement of Urinary Output in Critically Ill Patients Urinary Catheter Date of Insertion: 05/02/21 Urinary Catheter Time of Insertion: 23:10 Data : 05/08/21 05:40 05/08/21 05:40 Micro: Microbiology 05/06/21 10:34 Urine Culture - Final Urine,Clean Catch A&P Assessment and plan (1) Acute respiratory failure with hypoxia: Status: Acute (2) FELISA (acute kidney injury): Status: Acute (3) Cellulitis: Status: Acute (4) Restrictive lung disease: Status: Acute (5) Mixed connective tissue disease: Status: Acute (6) COVID-19: Status: Acute Additional A&P Information COVID-19 hypoxic respiratory failure Today requiring BiPAP again 12/6 FiO2 100% but short of breath last night we will repeat chest x-ray PE ruled out Persistent leukocytosis Status post remdesivir and interleukin-6 Continue Decadron, FELISA: Resolved Cellulitis: Resolved Preserved ejection fraction heart failure exacerbation Diuretics discontinued secondary to contraction alkalosis and dehydration today sodium 142, water deficit improved with improvement in p.o. intake She has guarded prognosis with increased risk of mortality & morbidity Patient is full code Cardiac diet DVT prophylaxis currently on Lovenox Attestations Medical Necessity Statement*: Continue medical management for persistent hypoxia secondary to COVID-19 pneumonia, Time Spent in Patient Care: less than 15 minutes Coding Level of Care Code Acute Video Editing Internship for g Fwd Diagnoses Acute respiratory failure with hypoxia J96.01 FELISA (acute kidney injury) N17.9 Cellulitis L03.90 Restrictive lung disease J98.4 Mixed connective tissue disease M35.1 COVID-19 U07.1
--- NOTE | 2021-05-08 13:16 | XR_ITS ---
WS: [id number] XR chest 1V portable [id number] REASON FOR EXAM: Worsening hypoxia FINDINGS: Right arm PICC line remains in position. Diffuse lung opacities which do not show definite interval change compared to 05/04/2021. No new chest findings. XR/XR chest 1V portable [id number] IMPRESSION: Stable abnormal chest.
[2021-05-08] MEDS: enoxaparin 40 mg/0.4 mL Syringe SUBCUT (15:45)
[2021-05-08] MEDS: nystatin powder 15 gm Btl 1 APPLIC TOPICAL (19:07)
[2021-05-08] MEDS: dexamethasone 4 mg/mL INJ 6 MG PO (20:52)
[2021-05-09] VITALS (24 sets, daily range): BP systolic 91–126; BP diastolic 41–84; PULSE 64–123; RESP 16–36; TEMP 36.4–36.8; O2SAT 83–98
[2021-05-09] MEDS: albuterol 8 gm MDI 2 PUFF INHALATION ×6 (00:10→23:11)
[2021-05-09 07:32] LABS: Basophils # 0.1 10^3/uL (0.0-0.1); Basophils % 0.3 %; Eosinophils % 0.1 %; Hematocrit 48.1 % (37.0-47.0); Hemoglobin 15.2 g/dL (11.5-15.3); Lymphocytes # 0.4 10^3/uL (0.8-4.8); Lymphocytes % 2.5 %; Mean Corpuscular HGB Conc 31.6 g/dL (30.0-36.0); Mean Corpuscular Hemoglobin 28.8 pg (28.0-34.0); Mean Corpuscular Volume 91.3 fL (81-99); Mean Platelet Volume 14.7 fL (7.4-10.4); Monocytes # 0.6 10^3/uL (0.2-0.9); Monocytes % 3.6 %; Neutrophils # 15.77 10^3/uL (1.8-7.7); Neutrophils % 91.9 %; Nucleated Red Blood Cells % 0 %; Platelet Count 102 10^3/cmm (130-400); Red Blood Count 5.27 10^6/uL (4.1-5.3); Red Cell Distribution Width 13.2 % (12.1-15.1); White Blood Count 17.2 10^3/uL (4.0-10.0)
[2021-05-09 08:02] LABS: Anion Gap 15.9 (5-19); Blood Urea Nitrogen 38 mg/dL (8-23); Calcium 8.3 mg/dL (8.5-10.5); Carbon Dioxide 27 mmol/L (22-29); Chloride 106 mmol/L (98-107); Glomerular Filtration Rate 83.7 mL/min (90-130); Glucose 102 mg/dL (65-115); Osmolality Calculated 307 mOsm/kg (285-295); Potassium 4.9 mmol/L (3.5-5.1); Sodium 144 mmol/L (136-145)
[2021-05-09] MEDS: losartan 50 mg Tablet 100 MG PO (10:14)
[2021-05-09] MEDS: citalopram 20 mg Tablet 10 MG PO (10:14)
[2021-05-09] MEDS: aspirin 81 mg EC Tablet PO (10:14)
[2021-05-09] MEDS: levothyroxine 50 mcg Tablet PO (10:14)
[2021-05-09] MEDS: hydroxychloroquine 200 mg Tablet PO ×2 (10:14→17:32)
[2021-05-09] MEDS: metoprolol tartrate 25 mg Tablet 12.5 MG PO ×2 (10:15→17:32)
[2021-05-09] MEDS: nystatin powder 15 gm Btl 1 APPLIC TOPICAL ×2 (10:17→17:33)
--- NOTE | 2021-05-09 10:36 | PC.RESP ---
Dr. Durand turned FIO2 on bipap to 75%. Told nurse that she can sat 89%. Respiratory was called to place patient on heated high flow, so patient could try and eat. Therapist placed patient on heated high flow of max setting of 70L 100%. Sat only 83% with max settings. Nurse was notified and decision was made to place patient back on bipap of 16/10 90%. Sats are maintaining at 89%. Dr. Durand was called with no answer. A text message was sent explaining situation. Patient is still maintaining on bipap of 16/10 90%. sats 89-90%. Therapist will try again at a later time.
[2021-05-09] MEDS: AA-Dex 5%-20% w/Lytes 1,000 ML 10 ML IV (13:33)
--- NOTE | 2021-05-09 13:57 | PM.PN ---
Subjective Subjective: Interval history: No overnight events, her FiO2 decreased to 75% which was keeping her oxygen between 90 to 91% on BiPAP 16/10 Asked nurse to switch her to high flow NC if she is able to eat today However she did not do well with heated high flow 70 L 100% she was saturating 83% she was transitioned to BiPAP 16/10 FiO2 90% saturation 89 to 91% Assess her Resp therapist to change her mask to avoid pressure injury/ulcer on her nose Agreed with dietitian to start TPN today Vitals/I&O/Wt Last Vital Signs Temp 97.6 F 05/09/21 11:46 Pulse 88 05/09/21 11:46 Resp 21 H 05/09/21 11:46 BP 115/46 05/09/21 11:46 Pulse Ox 87 L 05/09/21 11:46 05/08/21 05/09/21 05/09/21 22:59 06:59 14:59 Output Total 1200 / 1200 Balance -1200 / -1080 Physical Exam Narrative: EXAM NARRATIVE: Patient was sitting in her bed saturating 89 to 91% on BiPAP her FiO2 was decreased to 75% No visible respiratory distress patient was comfortable in her bed Bilateral rhonchi without any active wheezing noted Distended abdomen Facial skin flushed Lower extremity nonpitting edema EOMI, PERRLA GCS 15 No joint swelling Abdominal wall cellulitis improved Appropriate mood and affect Urinary Catheter Management^: Ayala: Cath Placed During This Visit: yes Reason for Continuing Indwelling Catheter: Other Urinary Catheter Date of Insertion: 05/02/21 Urinary Catheter Time of Insertion: 23:10 Data : 05/09/21 06:15 05/09/21 06:15 Other data: Transfer to ICU on 05/03 Transfer out of ICU 05/06 PICC line placement 05/05 A&P Assessment and plan (1) Acute respiratory failure with hypoxia: Status: Acute (2) FELISA (acute kidney injury): Status: Acute (3) Cellulitis: Status: Acute (4) Restrictive lung disease: Status: Acute (5) Mixed connective tissue disease: Status: Acute (6) COVID-19: Status: Acute Additional A&P Information Resistant hypoxia COVID-19 infection Finished remdesivir regimen, status post interleukin 6 inhibitor dose Finished Decadron 10-day regimen No signs of pneumothorax or worsening of chest x-ray, Start TPN today, agreed with dietary recommendations BiPAP dependent High risk for mortality morbidity carries guarded prognosis, high risk for intubation Considering BMI 48 not an ideal candidate for proning Hypernatremia: Resolved FELISA: Resolved, off diuretics now He received diuretics for preserved ejection fraction heart failure exacerbation during first 2 to 3 days of admission Abdominal pannus cellulitis resolved, off doxycycline Full code Started TPN today PE ruled out DVT prophylaxis Lovenox Pancreatic mass without any cystic appearance, concern for malignancy, daughter requesting that this news should not be conveyed to her mother during her COVID-19 infection which would put her health at risk due to depression a family member because of pancreatic cancer recently Attestations Medical Necessity Statement*: Continue medical management for resistant hypoxia currently on BiPAP Time Spent in Patient Care: 16 - 35 minutes Coding Level of Care Code Acute Investment Strategist for [facility] Diagnoses Acute respiratory failure with hypoxia J96.01 FELISA (acute kidney injury) N17.9 Cellulitis L03.90 Restrictive lung disease J98.4 Mixed connective tissue disease M35.1 COVID-19 U07.1
[2021-05-09] MEDS: enoxaparin 40 mg/0.4 mL Syringe SUBCUT (14:53)
--- NOTE | 2021-05-09 16:04 | PC.SOCIAL ---
IMM Updated Updated pt, via phone, on Pg 2 IMM. No questions voiced. Provided pt a copy. Initialed, dated, & timed copy in chart.
[2021-05-10] VITALS (19 sets, daily range): BP systolic 91–120; BP diastolic 46–64; PULSE 87–110; RESP 16–29; TEMP 36.3–37.1; O2SAT 87–91
--- NOTE | 2021-05-10 00:47 | PC.NURSE ---
Titrated TPN to 20ml/hr @ 00:53.
[2021-05-10] MEDS: albuterol 8 gm MDI 2 PUFF INHALATION ×3 (03:33→16:36)
[2021-05-10 04:45] LABS: ABG PH Result 7.43 (7.35-7.45); Arterial Blood Gas Hematocrit 46.9 % (37-47); Base Excess ABG 2.5 mmol/L (-2.0-2.0); Blood Gas Allen Test Pos; Blood Gas Operator Identificat BD; Blood Gas Sample Site Brachial, left; Blood Gas Sample Type Arterial; HCO3 ABG 27.2 mmol/L (22-26); Oxygen Device BIPAP; PO2 ABG 43.9 mmHg (80.0-100.0)
[2021-05-10] MEDS: hydroxychloroquine 200 mg Tablet PO ×2 (08:05→18:04)
[2021-05-10] MEDS: levothyroxine 50 mcg Tablet PO (08:05)
[2021-05-10] MEDS: metoprolol tartrate 25 mg Tablet 12.5 MG PO ×2 (08:05→18:04)
[2021-05-10] MEDS: aspirin 81 mg EC Tablet PO (08:06)
[2021-05-10] MEDS: citalopram 20 mg Tablet 10 MG PO (08:08)
[2021-05-10 08:46] LABS: Basophils % 0.3 %; Eosinophils # 0.1 10^3/uL (0.0-0.8); Eosinophils % 0.7 %; Lymphocytes # 0.5 10^3/uL (0.8-4.8); Lymphocytes % 3.3 %; Mean Corpuscular HGB Conc 31.3 g/dL (30.0-36.0); Mean Corpuscular Hemoglobin 29.2 pg (28.0-34.0); Mean Corpuscular Volume 93.4 fL (81-99); Mean Platelet Volume 15.1 fL (7.4-10.4); Monocytes # 0.6 10^3/uL (0.2-0.9); Monocytes % 4.5 %; Neutrophils % 89.7 %; Nucleated Red Blood Cells % 0 %; Platelet Count 65 10^3/cmm (130-400); Red Blood Count 5.14 10^6/uL (4.1-5.3); Red Cell Distribution Width 13.4 % (12.1-15.1); White Blood Count 13.7 10^3/uL (4.0-10.0)
[2021-05-10 09:14] LABS: Anion Gap 14.5 (5-19); Blood Urea Nitrogen 42 mg/dL (8-23); C Reactive Protein 15.3 mg/L (0.0-4.9); Calcium 8.3 mg/dL (8.5-10.5); Carbon Dioxide 24 mmol/L (22-29); Chloride 109 mmol/L (98-107); Glucose 102 mg/dL (65-115); Osmolality Calculated 307 mOsm/kg (285-295); Potassium 4.5 mmol/L (3.5-5.1); Sodium 143 mmol/L (136-145)
[2021-05-10 09:41] LABS: Slide Review Slide Review Perform
--- NOTE | 2021-05-10 11:35 | PC.RESP ---
on or about 1030 PT was in with patient to get patient up to bedside. Therapist transferred patient over to heated high flow per Dr. Durand request while working with PT. Patient was set on max settings of 70L and 100% Fio2. Patient failed with sats in the 70s. Bipap was placed back on patient.
--- NOTE | 2021-05-10 12:12 | PM.PN ---
Subjective Subjective: Interval history: Patient was seen and examined in ICU Patient did not do well on high flow yesterday 70 L 100% She is remaining BiPAP dependent for now complaining of extreme lethargy and fatigue and is very irritated because of her bedbound status TPN started yesterday She had 1 bowel movement Ayala catheter to be removed today I have requested respiratory therapist to give her break on BiPAP and try high flow again and see how she does on ambulation Asked RT to try full facemask to avoid pressure over her nose Vitals/I&O/Wt Last Vital Signs Temp 98.7 F 05/10/21 11:29 Pulse 92 05/10/21 12:02 Resp 25 H 05/10/21 12:02 BP 120/58 05/10/21 11:29 Pulse Ox 90 05/10/21 12:02 05/09/21 05/10/21 05/10/21 22:59 06:59 14:59 Output Total 1150 / 1550 Balance -1150 / -1550 Physical Exam Narrative: EXAM NARRATIVE: morbidly obese female who is BiPAP dependent, TPN running through her PICC line from right arm Noticed petechiae around the site Ayala catheter draining concentrated urine which has to be removed today Distended abdomen with obesity bowel sound present Patient seems very lethargic and tired No active strokelike symptoms able to make her needs known she is very anxious getting demotivated from staying in bed for most of the time BiPAP dependent currently on settings 14 and 10 FiO2 100% Saturation 89% Lower extremity no edema Nurse and RT at the bedside Urinary Catheter Management^: Ayala: Cath Placed During This Visit: yes Reason for Continuing Indwelling Catheter: Other Urinary Catheter Date of Insertion: 05/02/21 Urinary Catheter Time of Insertion: 23:10 Data : 05/10/21 06:33 05/10/21 06:33 A&P Assessment and plan (1) Acute respiratory failure with hypoxia: Status: Acute (2) FELISA (acute kidney injury): Status: Acute (3) Cellulitis: Status: Acute (4) Restrictive lung disease: Status: Acute (5) Mixed connective tissue disease: Status: Acute (6) COVID-19: Status: Acute Additional A&P Information Hypoxic respiratory failure secondary to COVID-19 BiPAP dependent Status post remdesivir and steroid regimen, she received interleukin-6 #1 dose as well Continue Ventolin I would avoid adding more systemic steroids to avoid ICU delirium and myopathy Currently no active wheezing BiPAP dependent, to give her breaks off BiPAP to high flow To work with physical therapy, has not made significant progress Guarded prognosis High risk for intubation Started TPN on 05/09 Ayala catheter to be removed today she has been having BMs on daily basis Abdominal wall cellulitis improved Full code TPN DVT prophylaxis Lovenox We will update family Attestations Medical Necessity Statement*: BiPAP dependent high risk for deterioration will might need ICU Time Spent in Patient Care: 16 - 35 minutes Coding Level of Care Code Acute Skiver Heel Tap for [facility] Fwd Diagnoses Acute respiratory failure with hypoxia J96.01 FELISA (acute kidney injury) N17.9 Cellulitis L03.90 Restrictive lung disease J98.4 Mixed connective tissue disease M35.1 COVID-19 U07.1
[2021-05-10] MEDS: nystatin powder 15 gm Btl 1 APPLIC TOPICAL ×2 (13:31→20:02)
[2021-05-10] MEDS: enoxaparin 40 mg/0.4 mL Syringe SUBCUT (18:04)
--- NOTE | 2021-05-10 20:25 | PC.NURSE ---
While giving report to dayshift yesterday I expressed concerns about intermediate teacher BI-pap use that should be discussed with doctor. When receiving report tonight day shift nurse stated the doctor spoke with the family but no final decisions were made. Will follow up nhan.
--- NOTE | 2021-05-10 20:47 | PC.NURSE ---
Increased difficulty breathing and shallow respirations noted. RT notified. Vitals remain within normal limits. Will continue to monitor.
[2021-05-11] VITALS (29 sets, daily range): BP systolic 87–138; BP diastolic 47–98; PULSE 76–137; RESP 16–32; TEMP 36.1–37.2; O2SAT 79–90
--- NOTE | 2021-05-11 01:49 | PC.NURSE ---
Resident has not voided since catheter removal at shift change. Bladder scan completed. 40mls seen. Will continue to monitor and incourage toileting.
[2021-05-11] MEDS: metoprolol tartrate 1 mg/1 mL SDV 5 mL 2.5 MG IV (04:35)
--- NOTE | 2021-05-11 04:39 | PC.NURSE ---
Patient HR continues to increase over the last two hours. Now continously staying about 110. Notified provied who ordered 2.5mg MetoprololIVP Stat. Med Given. Continue to monitor.
--- NOTE | 2021-05-11 04:40 | PC.NURSE ---
MOnitoring B/P q5 min along with HR continuos.
[2021-05-11 05:08] LABS: ABG PCO2 38.7 mmHg (35-45); ABG PH Result 7.44 (7.35-7.45); Alveolar-Arterial Oxygen Gradi 79.9 mmHg (5-10); Arterial Blood Gas Hematocrit 47.7 % (37-47); Base Excess ABG 2.1 mmol/L (-2.0-2.0); Blood Gas Allen Test Pos; Blood Gas Operator Identificat glc; Blood Gas Sample Site Radial, left; Blood Gas Sample Type Arterial; Carboxyhemoglobin 0.7 %THgb (0.4-20.1); HCO3 ABG 26.3 mmol/L (22-26); HGB O2 Sat 85.5 % (95-100); Ionized Calcium Level - ABG 1.3 mmol/L (1.1-1.4); Methemoglobin 0.3 % (0.4-1.5); Oxygen Device BIPAP; Oxygen Saturation ABG 86.3; PO2 ABG 49.3 mmHg (80.0-100.0); Potassium Level - ABG 3.9 mmol/L (3.5-5.0); Total Hemoglobin 15.6 g/dL (12-16)
--- NOTE | 2021-05-11 05:24 | PC.NURSE ---
Called Dr Guzman with updates on HR/BP and ABG. Ordered another IVP of 5ml Metoprolol. Also stated she was talking the family about treatment plans.
[2021-05-11] MEDS: metoprolol tartrate 1 mg/1 mL SDV 5 mL 5 MG IV (05:29)
--- NOTE | 2021-05-11 12:01 | P.PN_ITS ---
Subjective Subjective: Interval history: Patient was seen and examined this morning, ABG this morning is showing hypoxia on 100% FiO2 on BiPAP, she is BiPAP dependent did not tolerate humidified high flow 70 L yesterday, also did not do well with full facemask Overnight she developed A. fib with RVR and required a low-dose of metoprolol 2.5 mg IV push this morning when I saw her heart rate was fluctuating between 1 13-1 20, she is not complaining of active chest pain or shortness of breath, saturating well on 90% FiO2 with optimal settings of BiPAP Check magnesium, TSH and requested BMP Had a family meeting yesterday Spent a great deal of time explaining her current status, prognosis, treatment plan and especially disposition plan There were 2 daughters in the room, 1 daughter is a nurse instructor, she was adamant that we keep her on steroids, she expressed her frustration for not offering her more treatment regimens. Her concerns were heard in front of ICU nurse respiratory therapist, ample amount of time was spent in listening to her concerns first. I started by acknowledging their concerns and then showing chest x-rays with comparison to old chest imaging which is showing worsening of bilateral infiltrates probably showing fibrotic stage of ARDS with her multiple comorbid conditions. Her being BiPAP dependent and not been able to eat on her own is a major limiting factor and a poor prognostic sign Currently she is on TPN @50ml We did discuss goals of care, family had advanced directive documents with them and wanted to discuss goals of care with Ms. Thompson. Because of overwhelming situation Ms. Thompson could not make a decision. today on 05/11 she is stating aubrey t she would not like any chest compressions or endotracheal intubation but okay with BiPAP for now. Both daughters and patient is adamant that they would not go to LTAC, they are planning to stay home with AVAPS/trilogy however we do have to take into account that she is getting TPN feeds which might be difficult to titrate at home although her daughter is a nurse and her dependency on BiPAP with optimized higher settings of FiO2 92-100% is a major saba for her to even ambulate out of bed in the hospital let alone getting a ride to her home. Asked daughters to discuss further over the weekend so we could all make a safe discharge plan for Ms. Thompson. We will change her CODE STATUS once this has been discussed in front of her daughters Vitals/I&O/Wt Last Vital Signs Temp 97.6 F 05/11/21 08:00 Pulse 106 H 05/11/21 08:00 Resp 22 H 05/11/21 08:00 BP 113/53 05/11/21 08:00 Pulse Ox 88 L 05/11/21 08:00 05/10/21 05/11/21 05/11/21 22:59 06:59 14:59 Intake Total 280 / 450 567.333 / 1017.333 Output Total 1200 / 1200 Balance -920 / -750 567.333 / -182.667 Physical Exam Narrative: EXAM NARRATIVE: Patient was laying supine with BiPAP FiO2 90% saturating 88 to 99% A. fib with RVR heart rate 1 13-1 20 No active chest pain S1, S2 variable Hard to assess volume status has bilateral lower extremity nonpitting edema TPN running at 50 mL/h Bilateral assisted breath sounds with rhonchi and crackles at the bases Soft distended abdomen with obesity Abdominal pannus cellulitis improved Awake alert oriented x3 GCS 15 Looks very lethargic fatigue however not somnolent no signs of active neurological deficit Urinary Catheter Management^: Ayala: Cath Placed During This Visit: yes, but has since been removed by the nurse Reason for Continuing Indwelling Catheter: Decision to DC Catheter Urinary Catheter Date of Insertion: 05/02/21 Urinary Catheter Time of Insertion: 23:10 Date Urinary Catheter Removed: 05/10/21 Time Urinary Catheter Discontinued: 19:13 Data : 05/10/21 06:33 05/10/21 06:33 A&P Assessment and plan (1) Acute respiratory failure with hypoxia: Status: Acute (2) FELISA (acute kidney injury): Status: Acute (3) Cellulitis: Status: Acute (4) Restrictive lung disease: Status: Acute (5) Mixed connective tissue disease: Status: Acute (6) COVID-19: Status: Acute (7) Atrial fibrillation with RVR: Status: Acute Additional A&P Information New onset A. fib with RVR [id number], will start Eliquis Requested magnesium, TSH and BMP We will give her 10 mg Cardizem IV push and increase her metoprolol dose to 50 mg twice a day Hypoxia/BiPAP dependent with COVID-19 infection Currently on 90 to 100% FiO2 BiPAP dependent did not tolerate full facemask and humidified high flow nasal cannula, CTA rule out PE, bilateral dense consolidation/groundglass opacities ABG showing persistent hypoxia on optimal settings of BiPAP TPN for nutritional support, could not eat for about 5 to 7 days because of BiPAP dependency Cellulitis of abdominal wall: Improved FELISA: Resolved Ayala catheter was removed on 05/10 however inadequate urine output has been documented. for accurate ins and outs I will place Ayala catheter back Guarded prognosis, patient is stating that she does not want chest compressions or endotracheal intubation would like to change her CODE STATUS after family meeting today Patient and family refused LTAC or half-way, they are anticipating discharge home with AVAPS Kindly see my family meeting note above DVT prophylaxis currently on Eliquis TPN diet Full code re address today, full code for now Attestations Medical Necessity Statement*: Guarded prognosis continue medical management for BiPAP dependent hypoxia Time Spent in Patient Care: less than 15 minutes Coding Level of Care Code Acute Director Global Development for [facility] Fwd Diagnoses Acute respiratory failure with hypoxia J96.01 FELISA (acute kidney injury) N17.9 Cellulitis L03.90 Restrictive lung disease J98.4 Mixed connective tissue disease M35.1 COVID-19 U07.1 Atrial fibrillation with RVR I48.91
[2021-05-11] MEDS: AA-Dex 5%-20% w/Lytes 1,000 ML 50 ML IV (13:03)
[2021-05-11] MEDS: hydroxychloroquine 200 mg Tablet PO ×2 (13:33→18:43)
[2021-05-11] MEDS: apixaban 5 mg Tablet PO (13:33)
[2021-05-11] MEDS: levothyroxine 50 mcg Tablet PO (13:33)
[2021-05-11] MEDS: nystatin powder 15 gm Btl 1 APPLIC TOPICAL (13:34)
[2021-05-11] MEDS: losartan 50 mg Tablet 100 MG PO (13:34)
[2021-05-11] MEDS: citalopram 20 mg Tablet 10 MG PO (13:34)
[2021-05-11] MEDS: aspirin 81 mg EC Tablet PO (13:46)
[2021-05-11 14:00] LABS: Chloride 110 mmol/L (98-107); Potassium 4.6 mmol/L (3.5-5.1); Sodium 145 mmol/L (136-145)
[2021-05-11 14:58] LABS: Anion Gap 14.6 (5-19); Blood Urea Nitrogen 39 mg/dL (8-23); Calcium 8.6 mg/dL (8.5-10.5); Carbon Dioxide 25 mmol/L (22-29); Glucose 141 mg/dL (65-115); Magnesium 2.8 mg/dL (1.7-2.3); Osmolality Calculated 312 mOsm/kg (285-295)
--- NOTE | 2021-05-11 15:17 | PC.SOCIAL ---
IM follow up completed with daughter Gwendolyn and she verbalizes understanding.
[2021-05-11] MEDS: metoprolol tartrate 25 mg Tablet 50 MG PO (18:43)
--- NOTE | 2021-05-11 21:24 | PM.EVENT ---
Event Note Event Note: Had a family meeting today and pt made her wishes known to her family. she does not want to pursue aggressive measures and would stay DNR and DNI.she is not comfort care yet. for afib rvr and low BP change her cardizem to amio gtt
[2021-05-12] VITALS (32 sets, daily range): BP systolic 94–141; BP diastolic 49–88; PULSE 74–122; RESP 20–38; TEMP 36.2–36.7; O2SAT 71–89
[2021-05-12 07:00] LABS: Basophils # 0.1 10^3/uL (0.0-0.1); Basophils % 0.2 %; Hematocrit 47.5 % (37.0-47.0); Hemoglobin 14.7 g/dL (11.5-15.3); Lymphocytes # 0.5 10^3/uL (0.8-4.8); Mean Corpuscular HGB Conc 30.9 g/dL (30.0-36.0); Mean Corpuscular Volume 93.7 fL (81-99); Monocytes # 0.8 10^3/uL (0.2-0.9); Monocytes % 3.1 %; Neutrophils # 23.14 10^3/uL (1.8-7.7); Neutrophils % 93.3 %; Nucleated Red Blood Cells % 0 %; Platelet Count 62 10^3/cmm (130-400); Red Blood Count 5.07 10^6/uL (4.1-5.3); Red Cell Distribution Width 13.8 % (12.1-15.1); White Blood Count 24.8 10^3/uL (4.0-10.0)
[2021-05-12 07:36] LABS: Anion Gap 13.3 (5-19); Blood Urea Nitrogen 44 mg/dL (8-23); Calcium 8.7 mg/dL (8.5-10.5); Carbon Dioxide 24 mmol/L (22-29); Chloride 106 mmol/L (98-107); Glomerular Filtration Rate 83.7 mL/min (90-130); Glucose 123 mg/dL (65-115); Magnesium 3.1 mg/dL (1.7-2.3); Osmolality Calculated 301 mOsm/kg (285-295); Potassium 4.3 mmol/L (3.5-5.1); Sodium 139 mmol/L (136-145)
--- NOTE | 2021-05-12 09:43 | PM.PN ---
Subjective Subjective: Interval history: Patient was seen and examined this morning, she was saturating 75 to 80% on 100% FiO2 on BiPAP settings 29/07 overnight her heart rate has been fluctuating between 80-1 10, amio drip running at 0.5 Looks extremely lethargic however verbally redirectable not complaining of active pain Urine output 200 mL concern for oliguria Ayala catheter was reinserted yesterday to monitor accurate ins and outs Noticed worsening leukocytosis, she has stayed afebrile, sodium 139 Vitals/I&O/Wt Last Vital Signs Temp 97.3 F L 05/12/21 08:00 Pulse 86 05/12/21 08:32 Resp 32 H 05/12/21 08:32 BP 107/64 05/12/21 08:00 Pulse Ox 81 L 05/12/21 08:32 05/11/21 05/12/21 05/12/21 22:59 06:59 14:59 Intake Total 70.750 / 1193.417 304.25 / 1497.667 273.938 / 273.938 Output Total 200 / 200 Balance 70.750 / 1193.417 104.25 / 1297.667 273.938 / 273.938 Physical Exam Narrative: EXAM NARRATIVE: Morbid obese female BiPAP dependent currently on 29/07 saturating 75 to 80% Does have tachypnea, uses abdominal muscles Lethargic and fatigued however verbally redirectable No neurological deficit Awake but somnolent S1, S2 variable, hard to assess her volume status but looks intravascular depleted Urine concentrated in urine bag Lower extremity nonpitting edema Visceral obesity, distended abdomen no signs of peritonitis TPN from right PICC line running at 50 mL/h Urinary Catheter Management^: Ayala: Cath Placed During This Visit: yes, but has since been removed by the nurse Reason for Continuing Indwelling Catheter: Acute Urinary Retention or Obstruction Urinary Catheter Date of Insertion: 05/02/21 Urinary Catheter Time of Insertion: 23:10 Date Urinary Catheter Removed: 05/10/21 Time Urinary Catheter Discontinued: 19:13 Data : 05/12/21 05:50 05/12/21 05:50 A&P Assessment and plan (1) Atrial fibrillation with RVR: Status: Acute (2) Acute respiratory failure with hypoxia: Status: Acute (3) FELISA (acute kidney injury): Status: Acute (4) Cellulitis: Status: Acute (5) Restrictive lung disease: Status: Acute (6) Mixed connective tissue disease: Status: Acute (7) COVID-19: Status: Acute (8) BiPAP (biphasic positive airway pressure) dependence: Status: Acute (9) On total parenteral nutrition: Status: Acute (10) DNR (do not resuscitate): Status: Acute Additional A&P Information Ms. Thompson is a 65-year-old female who has history of restrictive lung disease, scleroderma, mixed connective tissue disorder was admitted for management of hypoxic respiratory failure secondary to COVID-19, was transferred to ICU on 05/03 for worsening respiratory distress, she stayed on BiPAP, became hypernatremic secondary to dehydration because every time she tried to eat she would desaturate right away, she was transferred out of ICU on 05/06 to medical floor, her hyponatremia improved when she started eating on medical floor with oxygen supplementation of heated high flow 100% 70 L, unfortunately she required BiPAP again and could not eat, PICC line was placed on 05/05, CTA rule out PE, TPN started because she was not able to eat independently without getting hypoxic, considering guarded prognosis because of underlying condition and her BiPAP dependency had multiple family meetings, family had DPOA documentation which was signed on 05/11, patient expressed her wishes to stay DNR/DNI (of note, CTA chest revealed pancreatic head mass, malignancy has not been ruled out family and patient were made aware, no further investigation to be pursued at this time) Hypoxic respiratory failure secondary to COVID-19 pneumonia BiPAP dependent Currently saturating 75 to 80% on optimal settings of BiPAP FiO2 100% 29/07 At this point prostacyclin over inhaled nitric oxide would not carry any merit Status post remdesivir and Decadron regimen I have continued her on moderate dose systemic steroids for now, which might explain increasing leukocytosis Her chest x-ray shows fibrotic changes with ARDS presentation She has not shown any signs of recovery in last 7 days Has not done well with physical therapy as well Guarded prognosis, multiple family meetings took place, currently she is DNR/DNI I have allowed her family members to visit her on daily basis,(she is not comfort care) Cultures negative to date New onset A. fib with RVR Started Cardizem drip patient became hypotensive now she is on amnio drip Started Eliquis TSH normal normal electrolytes This most likely is related to persistent hypoxia Nutritional support with TPN PICC line placed 05/05 Abdominal wall cellulitis: Improved after doxycycline regimen FELISA: Resolved with diuresis Ayala catheter placed to monitor accurate ins and outs, getting oliguric DVT prophylaxis: Currently on Eliquis DNR/DNI Attestations Medical Necessity Statement*: Guarded prognosis, BiPAP dependent continue current management Time Spent in Patient Care: less than 15 minutes Coding Level of Care Code Acute Quality Facilitator for g Fwd Diagnoses Atrial fibrillation with RVR I48.91 Acute respiratory failure with hypoxia J96.01 FELISA (acute kidney injury) N17.9 Cellulitis L03.90 Restrictive lung disease J98.4 Mixed connective tissue disease M35.1 COVID-19 U07.1 BiPAP (biphasic positive airway pressure) dependence Z99.89 On total parenteral nutrition Z78.9 DNR (do not resuscitate) Z66
[2021-05-12 15:23] LABS: Glucose Point of Care 209 mg/dL (70-110)
[2021-05-12] MEDS: AA-Dex 5%-20% w/Lytes 1,000 ML 75 ML IV (20:27)
[2021-05-12] MEDS: LORazepam 2 mg/mL INJ 1 mL IVP (23:50)
[2021-05-13] VITALS (20 sets, daily range): BP systolic 88–128; BP diastolic 57–104; PULSE 0–121; RESP 0–100; TEMP 36.4–36.6; O2SAT 72–86
[2021-05-13 06:18] LABS: Basophils # 0.1 10^3/uL (0.0-0.1); Basophils % 0.3 %; Hematocrit 48.7 % (37.0-47.0); Lymphocytes # 0.5 10^3/uL (0.8-4.8); Mean Corpuscular HGB Conc 30.8 g/dL (30.0-36.0); Mean Corpuscular Hemoglobin 29.3 pg (28.0-34.0); Mean Corpuscular Volume 95.1 fL (81-99); Monocytes # 1.2 10^3/uL (0.2-0.9); Monocytes % 4.7 %; Neutrophils # 23.93 10^3/uL (1.8-7.7); Neutrophils % 91.1 %; Nucleated Red Blood Cells % 0 %; Platelet Count 73 10^3/cmm (130-400); Red Blood Count 5.12 10^6/uL (4.1-5.3); Red Cell Distribution Width 13.8 % (12.1-15.1); White Blood Count 26.3 10^3/uL (4.0-10.0)
[2021-05-13 06:45] LABS: Anion Gap 14.6 (5-19); Blood Urea Nitrogen 60 mg/dL (8-23); C Reactive Protein 17.5 mg/L (0.0-4.9); Calcium 8.9 mg/dL (8.5-10.5); Carbon Dioxide 23 mmol/L (22-29); Chloride 111 mmol/L (98-107); Glomerular Filtration Rate 62.6 mL/min (90-130); Glucose 152 mg/dL (65-115); Osmolality Calculated 318 mOsm/kg (285-295); Phosphorus 4.2 mg/dL (2.5-4.5); Potassium 4.6 mmol/L (3.5-5.1); Sodium 144 mmol/L (136-145); Triglycerides 81 mg/dL (0-150)
[2021-05-13] MEDS: nystatin powder 15 gm Btl 1 APPLIC TOPICAL (09:47)
--- NOTE | 2021-05-13 10:38 | PC.SOCIAL ---
IMM Not Updated Pg. 2 of IMM not updated, not anticipated to d/c within 48hours.
--- NOTE | 2021-05-13 14:02 | PC.PT ---
Patient now on comfort care per nursing staff, multiple family members present in room; discharge physical therapy until further orders; patient unable to maintain 75% oxygen saturation on 100% oxygen and 21 L/min flow.Diogenes Jordan PT.
[2021-05-13] MEDS: LORazepam 2 mg/mL INJ 1 mL IVP (14:29)
[2021-05-13] MEDS: morphine 4 mg/mL SDV 1 mL 2 MG IVP (14:32)
--- NOTE | 2021-05-14 12:36 | P.DES_ITS ---
Discharge Providers DDS Date of Admission: 04/28/21 22:46 Date Summary Completed: 05/14/21 Attending Provider at Admission: Jewels Partida MD Time of : 15:26 Attending Provider at Discharge: Richard Oneal MD Primary Care Provider: Salas Echevarria MD DS Diagnoses Hospital Diagnoses (1) Atrial fibrillation with RVR: (2) Acute respiratory failure with hypoxia: (3) FELISA (acute kidney injury): (4) Cellulitis: (5) Restrictive lung disease: (6) Mixed connective tissue disease: (7) COVID-19: (8) BiPAP (biphasic positive airway pressure) dependence: (9) On total parenteral nutrition: (10) DNR (do not resuscitate): Reason for Visit Reason for Visit: COUGH; HEADACHE; EXPOSED TO COVID Summary Date and Time of Date of : 05/13/21 Time of : 15:26 Summary Summary: 65 year old female with a past medical history of mixed connective tissue disorder on hydroxychloroquine, restrictive lung disease, ILD, oxygen dependent at baseline, supposed to be on 2.5 L/min. She presents to the emergency room today which chief complaint of fever, chills, weakness, nausea, myalgias, cough with expectoration and progressively worsening dyspnea over the past week. Upon presentation to the emergency room she was saturating 84% on room air, tachypneic upon admission and then tested positive for COVID-19. She was admitted for the management of acute hypoxic respiratory failure secondary to Covid pneumonia. She Was started being managed as per the Covid protocol, had a very complicated hospital course, even requiring ICU stay, became BiPAP dependent, requiring high supplemental oxygen,CTA chest was done to rule out PE, showed Diffuse bilateral groundglass infiltrates compatible with COVID 19 pneumonia. Some consolidation in the lung bases. Incidental finding of Heterogeneously enhancing mass involving the head of the pancreas is partially evaluated suspicious for neoplasm. This measures approximately 3.2 x 3.3 CM. Hospital course was also complicated by development of A. fib with RVR for which she was on Cardizem drip, later transitioned to amnio drip, was kept on therapeutic anticoagulation.Nutritional support was given with TPN.She had also developed FELISA which resolved with diuresis. Given the fact that the patient was not improving in spite of aggressive medical management for Covid pneumonia, and a pre-existing poor baseline functional status, family decided to make the patient comfort care. Family wishes where honoured, she was made comfort care. She peacefully on 13 May 2021 at 3:26 PM. Additional Data Confirmation of as documented by pronouncing clinician: no pulse, no respirations, no heart sounds and pupils fixed and dilated Family: at bedside Additional persons at bedside: nursing staff Attending/PCP notified?: I am attending Was code activated?: No Autopsy requested?: No Advance directives?: No Hospice patient?: No Discharge Plan Discharge Patient Disposition: Condition: Stable Prescriptions: No Action furosemide 40 mg tablet See Rx Instructions .ROUTE .COMPLEX RF: 0 potassium chloride 10 mEq capsule, extended release 10 meq PO BID RF: 0 cyanocobalamin (vitamin B-12) [Vitamin B-12] 1,000 mcg Tablet See Rx Instructions .ROUTE .COMPLEX RF: 0 amlodipine 5 mg tablet 7.5 mg PO QPM RF: 0 aspirin [Aspir-81] 81 mg Tablet,Delayed Release (Dr/Ec) 81 mg PO DAILY RF: 0 spironolactone 25 mg tablet 50 mg PO DAILY RF: 0 levothyroxine 50 mcg tablet 50 mcg PO DAILY RF: 0 hydroxychloroquine 200 mg tablet 200 mg PO BID RF: 0 albuterol sulfate [ProAir HFA] 90 mcg/actuation HFA aerosol inhaler 2 puff INHALATION Q4H PRN (Reason: Shortness Of Breath) RF: 0 losartan 100 mg tablet 100 mg PO DAILY RF: 0 fluticasone propionate [Flonase Allergy Relief] 50 mcg/actuation [place],Suspension 2 spray INTRANASAL BID PRN (Reason: unknown) RF: 0 metoprolol tartrate 25 mg tablet 12.5 mg PO BID Qty: 0 RF: 0 citalopram 10 mg tablet 10 mg PO DAILY RF: 0 Breo Ellipta 200-25 mcg/dose blister with device 1 ea INHALATION DAILY RF: 0 Referrals: Salas Echevarria MD [Primary Care Provider] - Patient Instructions: Opioid Safety Probable Cause of Probable cause of : Cardiac arrest DS Attestations Time Spent in /Discharge Care*: less than 30 min Quality - AMI: AMI present?: No Quality - Stroke: CVA present?: No Quality - VTE: VTE present?: No Deep Vein Thrombosis/Pulmonary Embolism Present on Admission: No Coding Level of Care Code Acute Conditioning Room Worker for [facility] Fwd Diagnoses Atrial fibrillation with RVR I48.91 Acute respiratory failure with hypoxia J96.01 FELISA (acute kidney injury) N17.9 Cellulitis L03.90 Restrictive lung disease J98.4 Mixed connective tissue disease M35.1 COVID-19 U07.1 BiPAP (biphasic positive airway pressure) dependence Z99.89 On total parenteral nutrition Z78.9 DNR (do not resuscitate) Z66
== END 2021-05-13 15:26 | disposition expired | DRG 177 ==
LOC: ER 19:22 → CSU 04-29 06:16 → ICU 05-03 10:26 → MEDSURG 05-06 13:07 → MS 2A 05-08 17:02
PROVIDERS: Internal Medicine; Admitting Provider Student in an Organized Health Care Education/Training Program; Emergency Provider Family Medicine; PCP Internal Medicine; Visit Provider Internal Medicine
DX: U07.1 COVID-19 (principal); J80 Acute respiratory distress syndrome; J12.82 Pneumonia due to coronavirus disease 2019; N17.9 Acute kidney failure, unspecified; I50.32 Chronic diastolic (congestive) heart failure; Z99.11 Dependence on respirator [ventilator] status; Z68.42 Body mass index [BMI] 45.0-49.9, adult; M35.1 Other overlap syndromes; E87.1 Hypo-osmolality and hyponatremia; E87.0 Hyperosmolality and hypernatremia; L03.311 Cellulitis of abdominal wall; E86.0 Dehydration; Z51.5 Encounter for palliative care; I48.91 Unspecified atrial fibrillation; J98.4 Other disorders of lung; N18.9 Chronic kidney disease, unspecified; Z66 Do not resuscitate; Z79.01 Long term (current) use of anticoagulants; Z74.01 Bed confinement status; K86.9 Disease of pancreas, unspecified; I89.0 Lymphedema, not elsewhere classified; E66.01 Morbid (severe) obesity due to excess calories; Z99.81 Dependence on supplemental oxygen; Z82.49 Family history of ischemic heart disease and other diseases of the circulatory system; Z88.8 Allergy status to other drugs, medicaments and biological substances; Z79.890 Hormone replacement therapy; Z79.82 Long term (current) use of aspirin; Z88.0 Allergy status to penicillin
CPT/HCPCS: 36415; 36416; 36569; 36592; 36600; 51702; 71045; 71275; 80048; 80051; 80053; 81001; 82330; 82728; 82803; 82805; 82962; 83605; 83615; 83735; 83880; 84100; 84145; 84443; 84478; 84484; 85025; 85378; 86140; 87040; 87086; 87426; 93005; 94640; 94660; 96360; 96372; 97110; 97162; 97530; 99285; J0282; J0456; J0696; J1100; J1650; J1940; J2060; J2270; J2930; J3262; J3490; J3535; J7050; J7060; J7611; J7626; J7799; Q9967